=== PATIENT | male | born 1935 | race Caucasian/White ===

== ENCOUNTER 2018-01-04 09:58 | Inpatient (IN) ==
[2018-01-04] MEDS ORDERED: Dexamethasone 4 MG/ML VIAL ONE (10:29)
[2018-01-04] MEDS ORDERED: *HR* Rocuronium Bromide 50 MG/5 ML VIAL ONE ×2 (10:29→15:52)
[2018-01-04] MEDS ORDERED: Lidocaine -MPF 4% 5 ML AMPUL ONE (10:29)
[2018-01-04] MEDS ORDERED: *HR* Propofol 200 MG/20 ML VIAL IVP ONE (10:29)
[2018-01-04] MEDS ORDERED: Lidocaine -MPF 2% 2 ML VIAL ONE (10:29)
[2018-01-04] MEDS ORDERED: *HR* FentaNYL (PF) 100 MCG/2 ML VIAL ONE ×3 (10:29→17:53)
[2018-01-04] MEDS ORDERED: Ondansetron 4 MG/2 ML VIAL ONE ×2 (10:29→17:41)
[2018-01-04] MEDS ORDERED: Ringers Solution, Lactated 1,000 ML IVC SCH (10:30)
[2018-01-04] MEDS ORDERED: Albuterol 2.5 MG/3 ML NEBULIZER IH ONE (10:38)
[2018-01-04] MEDS ORDERED: CeFAZolin Syr 2,000MG/20 ML 2,000 MG/20 ML SYRINGE IVPB ONE (10:45)
[2018-01-04] MEDS ORDERED: Heparin 1,000 UNITS/500 mL 500 ML ONE (10:49)
[2018-01-04] MEDS ORDERED: *HR* Heparin 5,000 UNIT/ML VIAL ONE ×2 (10:50→13:52)
[2018-01-04] MEDS ORDERED: ceFAZolin 1,000 MG, Sodium Chloride IRRigation 1,000 ML IR ONE (11:30)
[2018-01-04] MEDS ORDERED: Bupivacaine/EPI 1:200k 0.5%PF 10 ML VIAL ONE (11:34)
--- NOTE | 2018-01-04 11:34 | History & Physical Report ---
Date of Encounter: 01/04/18 Time of Encounter: 11:25 24 Hour HP Update - Instructions Instructions: If the History and Physical is less than 30 days old and was completed prior to A.M. admission and or procedure and has NOT been updated on calendar day of procedure please complete this update prior to performing procedure. - Update Patient reports changes in Medical Condition: No Changes in examination, assessment, or condition: No Changes in Medication: No Preop tests/diagnostics Reviewed: Yes Surgery Remains Indicated: Yes Consent for Planned Operative Procedure(s) Verified: Yes - Pre-Operative Checklist Preoperative Checklist Indicated: Yes Prophylactic Antibiotic Ordered: Yes Home Medications Include Beta Misbah: Yes Beta Misbah Taken Today (Day of Surgery): Yes Beta Misbah Taken Yesterday (Day Prior to Surgery): Yes Is VTE Prophylaxis Indicated?: Yes
[2018-01-04] MEDS ORDERED: Heparin 1,000 UNITS/500 mL 1,500 ML ONE (11:35)
--- NOTE | 2018-01-04 11:39 | Anesthesia Evaluation PreOp ---
Date of Encounter: 01/04/18 Time of Encounter: 11:38 - Past History Planned Operation: Right LE vascular intervention Cardiac History: HTN, Hyperlipidemia, Cardiac Surgery (CABG), Other (Good excercise tolerance, Rafiq LE claudication) Pulmonary History: Former smoker, Smoker (Pipe) [employer] History: Denies Any Significant HX Other Medical History: GERD (Controlled) Anesthesia History: No Prior Anesthetic Complications, Past Anesthesia Alcohol Use: none Drug use: none Medications and Allergies Aspirin [Lo-Dose Aspirin EC] 81 mg PO DAILY 01/04/18 [History] Enalapril Maleate [Vasotec] 20 mg PO DAILY 01/04/18 [History] Famotidine [Pepcid] 20 mg PO BID 01/04/18 [History] Gabapentin [Neurontin] 200 mg PO HS 01/04/18 [History] Metoprolol [Lopressor] 25 mg PO BID 01/04/18 [History] Rosuvastatin Calcium [Rosuvastatin Calcium] 20 mg PO HS 01/04/18 [History] 3 Allergy/AdvReac Type Severity Reaction Status Date / Time No Known Allergies Allergy Verified 01/04/18 10:37 - Meds/Allergy Pre-op Review Medications Reviewed: Yes Allergies Reviewed: Yes Beta Blockers on Current Med List: Yes Anesthesia Exam O2 Sat Height 1.68 m Height 1.68 m Weight 60.781 kg Weight 60.781 kg O2 Sat by Pulse Oximetry 98 Vital Signs Temp Pulse Resp BP Pulse Ox 97.9 F 59 18 174/63 98 01/04/18 10:28 01/04/18 10:28 01/04/18 10:28 01/04/18 10:28 01/04/18 10:28 NPO (# of Hours): >8 - HEENT Mallampati: II Teeth: Edentulous - Cardiac Rhythm: Regular - Pulmonary Breath Sounds: bilateral Clear Anesthesia Assess/Plan ASA Score: 4 Modified [place] Scale for Level of Consciousness: Cooperative, oriented, and tranquil Anesthetic Plan: General Monitoring Plan: Standard Monitors Recovery Plan: PACU Anes Supervising Prov Stmt: Patient informed and consented. Risks, benefits, and alternatives discussed. Patient wishes to proceed.
[2018-01-04] MEDS ORDERED: Isovue-300 50 ML VIAL IVP ONE (12:25)
[2018-01-04] MEDS ORDERED: EPHEDrine 50 MG/ML VIAL ONE (13:25)
[2018-01-04] MEDS ORDERED: MORPHINE SUL Oral CONC 10 MG/0.5 ML ORAL.SYG SL PRN (14:25)
[2018-01-04] MEDS ORDERED: *HR* OxyCODONE Immed Rel 5 MG TABLET PO PRN ×2 (14:25→20:12)
[2018-01-04] MEDS ORDERED: *HR* Labetalol 20 MG/4 ML SYRINGE IVP PRN (14:26)
[2018-01-04] MEDS ORDERED: Ondansetron 4 MG/2 ML VIAL IVP PRN ×2 (14:26→20:12)
[2018-01-04] MEDS ORDERED: Neostigmine Methylsulfate 3 MG/3 ML SYRINGE ONE (17:41)
[2018-01-04] MEDS ORDERED: Esmolol 100 MG/10 ML VIAL IVP ONE (17:45)
[2018-01-04] MEDS ORDERED: Acetaminophen IV 1,000 MG/100 ML INFUS..BTL ONE (18:10)
--- NOTE | 2018-01-04 18:25 | Operative Note ---
Date of procedure: 01/04/18 Pre-op diagnosis: PAD/claudication Post-op diagnosis: same Procedure: right iliofemoral endarterectomy with bovine patch angioplasty abdominal aortogram with radiologic supervision and interpretation via retrograde approach in right groin right external iliac stent angioplasty-unilateral- with 6 x 40 mm self expanding stent with post stent balloon angioplasty with radiologic supervision and interpretation right leg angiogram with radiologic supervision and interpretation via antegrade approach via right groin right AK popliteal endarterectomy right femoral to AK popliteal bypass with 6 mm PTFE Distaflo Complications: none Anesthesia: GETA Surgeon: Harrison Fam Was there an behavioral modification assistant present: No Estimated blood loss (cc): 200 Specimen: 0 Condition: stable Disposition: PACU Procedure in Detail: History Adolph Wei is an 82-year-old white male who was seen in consultation earlier this year because of bilateral lower extremity symptoms. The patient has a remote history of peripheral vascular disease. He had undergone previous iliac stent angioplasties at [facility] many years ago. The patient states that he has had return of his symptoms and was referred to the vascular surgery clinic for further evaluation. The patient underwent noninvasive testing which showed an ankle-brachial index of approximately 0.5 bilaterally. He then underwent a CT angiogram which demonstrated significant iliac and superficial femoral as well as common femoral artery disease. This was bilateral but worse on the right lower extremity than on the left. Therefore today he comes to the operating room to attempt to alleviate the right lower extremity claudication and ischemia. He is aware that he will require a second operation for the left lower extremity at a later date. Procedure After informed consent was obtained the patient was taken to the operating room. General endotracheal anesthesia was established. The abdomen groin and right lower extremity were sterilely prepped and draped. A timeout protocol was observed. The initial incision was at the right groin area. Dissection was made through a vertical incision in the right groin to expose the entire length of the common femoral artery as well as the femoral bifurcation and distal aspect of the external iliac artery. This was an extensive dissection with multiple branches requiring control. After this was satisfactorily obtained and the vessel was inspected and found to be densely calcified with marked areas of rigidity. It should be noted that the superficial femoral artery and profunda femoris artery distal to the orifice ease appeared to be relatively soft. The external iliac artery was densely calcified as far as could be palpated retrograde from this right groin exposure. 5000 units of heparin were then administered. After an appropriate delay the vessels were controlled and a long arteriotomy was made over the right common femoral artery. The entire anterior aspect of the common femoral artery was opened. This was continued into the distal external iliac artery as well. The plaque was indeed a very dense calcific plaque. Parts of the was circumferential. An endarterectomy was then performed of the entire common femoral artery and distal right external iliac artery. In addition the orifice of the right profunda femoris artery and right superficial femoral artery were also endarterectomized. There was a large area of calcific plaque obstructing the orifice of the right profunda femoris artery. After this endarterectomy was accomplished a bovine pericardial patch angioplasty was performed. This was sewn into position using 6-0 Prolene suture. After appropriate backbleeding and flushing the clamps are removed and pulsatile flow was restored into the femoral system. With this accomplished the next order of business was to more fully evaluate the aortoiliac segment. Therefore an 18-gauge needle was used and punctured the patch angioplasty site in a retrograde orientation. This was followed by a wire which under fluoroscopic control was advanced into the iliac system. This was followed by a 5.5 cm Long 6 Icelandic sheath. The sheath was aspirated and flushed with heparinized saline. An iliac angiogram and an aortic angiogram was then performed via the right groin approach. The previously placed iliac stents were observed. These were found to be at the proximal common iliac arteries bilaterally. In addition there was a second stent on the right side that was in the distal common iliac and extending into the proximal right external iliac artery and covering over the orifice of the internal iliac. The right sided stents were patent. There was an area of stenosis however distal to the lower of the 2 right sided stents but proximal to the area of the endarterectomy. Therefore additional heparin was given and a stent angioplasty was performed of this stenotic area in the proximal to midportion of the right external iliac artery. A 6 x 40 self-expanding stent was selected. This was deployed under fluoroscopic control. This was then followed by a 6 x 40 balloon to perform a balloon angioplasty of the self-expanding stent. With this accomplished a retrograde angiogram was performed which showed wide patency of the right iliac system. Then an Omni Flush catheter was placed into the distal abdominal aorta and an aortogram was performed. In addition, particular attention was paid to the left iliac system. This showed that the proximal aspect of the left common iliac artery stent was widely patent but the distal aspect of the stent showed significant disease. There is also significant disease throughout the left external iliac artery. It was judged that this area could be addressed in the future by a left groin exploration and endarterectomy with retrograde treatment of the left iliac system stenoses. The 6 Icelandic shunt was then removed from its retrograde orientation and the puncture site closed with a 6-0 Prolene suture. An 18-gauge needle was used and then a separate rupture site was utilized and the sheath was then now oriented in an antegrade fashion. After this was done a wire was inserted through the sheath and an angiogram was performed of the right lower extremity. 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 There is reconstitution of an [id number] popliteal artery. The collateralization appears to be dense and chronic. Calcific disease of the superficial femoral artery and proximal popliteal were observed. A Glidewire was then inserted and a Hayes catheter and an attempt was made to transgress the chronic occlusion. This was unsuccessful and the true lumen in the popliteal could not be recanalized. Therefore an endovascular attempt to revascularize the superficial femoral artery occlusion was abandoned and direct revascularization was necessary. With this decision made a second incision was then made at the [id number] popliteal location. Dissection was carried out to reveal the [id number] popliteal artery. This was normal in size but demonstrated calcific plaque disease as expected by the angiogram. Therefore after appropriate control was obtained a longitudinal arteriotomy was made on the popliteal artery. A very thick and dense plaque was present and protruded immediately through the area of the arteriotomy. A formal endarterectomy was then performed of the above-the- knee popliteal artery area after this was accomplished the bed of the vessel was inspected for any residual debris. This vessel was now prepared to receive the distal anastomosis. A 6 mm PTFE Distaflo graft was selected. It was passed in a subsartorial plane with the fluted end of the graft placed on the endarterectomized [id number] right popliteal artery. An end of graft to side of artery anastomosis was then created using 6-0 Prolene suture. The graft was then clamped. An opening was then made on the right femoral artery bovine pericardial patch. An endograft to side of artery anastomosis was then created at the common femoral artery to provide the proximal inflow into the graft. After appropriate backbleeding and flushing the graft was opened. Excellent pulsatile flow was achieved through the graft into the popliteal system. Doppler signals were identified over the dorsalis pedis and posterior tibial arteries at the ankle. With these multiple steps now performed a right lower extremity was successfully revascularized. The incisions were then irrigated and hemostasis achieved. The heparin was not reversed. The wounds were then closed in layers using absorbable suture. Dry sterile dressings were applied. The patient was then extubated in the operating room. He was taken to the recovery room in stable condition. There were no intraoperative complications.
[2018-01-04] MEDS ORDERED: Gabapentin 300 MG CAPSULE PO ONE (19:28)
[2018-01-04] MEDS ORDERED: *HR* HYDROcodone/Acet 5/325 mg TABLET PO PRN (20:12)
[2018-01-04] MEDS ORDERED: Naloxone 0.4 MG/ML INJ IVP PRN (20:12)
[2018-01-04] MEDS ORDERED: Acetaminophen 325 MG TABLET PO PRN (20:12)
[2018-01-04] MEDS ORDERED: Gabapentin 100 MG CAPSULE PO SCH (21:00)
[2018-01-04] MEDS: Famotidine 20 MG TABLET PO SCH (21:20)
--- NOTE | 2018-01-04 23:03 | Anesthesia Evaluation Post Op ---
Date of Encounter: 01/04/18 Time of Encounter: 23:02 - Vital Signs Vital Signs: Vital Signs/O2 Sat, Most Current Temp Pulse Resp BP Pulse Ox 97.5 F L 93 16 101/48 93 01/04/18 21:47 01/04/18 21:47 01/04/18 21:47 01/04/18 21:47 01/04/18 21:47 - Lungs Lungs: Clear Ascult./Percussion - Airway Airway: Non-obstructed - Cardiovascular Regular Rate - Mental Status Mental Status: Alert & Oriented, Answers Appropriately - Pain Pain Scale: 0 Pain Scale used: Numeric (1 - 10) - Nausea Vomiting Nausea Vomiting: Not Present - Hydration Hydration: NPO - Discharge PostOp Status: Transfer Patient to floor
[2018-01-05] MEDS ORDERED: CeFAZolin Pre 2,000 MG/100 ML 2,000 MG/100 ML BAG IVPB SCH
[2018-01-05] MEDS: ceFAZolin 2,000 MG in 0.9 % Sodium Chloride 100 ML IVPB SCH ×2 (00:27→08:48)
[2018-01-05 03:23] LABS: Basophils % 0.1 %; Hematocrit 30.8 % (37.5-50.1); Immature Granulocytes % 0.7 % (0-4); Lymphocytes # 1.8 K/mcL (0.6-4.6); Lymphocytes % 13.7 %; Mean Corpuscular HGB Conc 32.1 g/dL (31.6-35.5); Mean Corpuscular Hemoglobin 28.7 pg (28.0-33.3); Mean Corpuscular Volume 89.3 fL (83.0-100.0); Mean Platelet Volume 9.8 fL (9.4-12.4); Monocytes # 0.9 K/mcL (0.0-1.3); Monocytes % 6.7 %; Neutrophils # 10.5 K/mcL (1.6-8.9); Platelet Count 190 K/mcL (140-400); Red Blood Count 3.45 M/mcL (4.19-5.50); Red Cell Distribution Width 14.3 % (11.5-14.5); Segmented Neutrophils % 78.8 %
[2018-01-05 03:26] LABS: Hemoglobin 9.9 g/dL (12.9-16.9)
[2018-01-05 03:43] LABS: BUN/Creatinine Ratio 18 (6-26); Blood Urea Nitrogen 24 mg/dL (8-23); Carbon Dioxide 25 mEq/L (23-29); Chloride 109 mEq/L (98-107); Glucose 163 mg/dL (70-105); Osmolality,Calculated 296 (280-300); Potassium 3.7 mEq/L (3.5-5.1); Sodium 139 mEq/L (136-145); eGFR For African Americans > 60 (> 60); eGFR For Non-African Americans 52 (> 60)
[2018-01-05] MEDS: Famotidine 20 MG TABLET PO SCH (08:47)
[2018-01-05] MEDS ORDERED: Lisinopril 20 MG TABLET PO SCH (09:00)
[2018-01-05] MEDS ORDERED: Aspirin Enteric Coated 81 MG Tablet PO SCH (09:00)
[2018-01-05] MEDS ORDERED: ceFAZolin 2,000 MG in 0.9 % Sodium Chloride 100 ML IVPB SCH (16:00)
[2018-01-05 16:18] VITALS: BP 142/55
--- NOTE | 2018-01-05 18:04 | Discharge Summary ---
Orders not resulted at time of discharge: Pending orders 01/04/18 15:05 XR femur RT [XR] Routine Date of Encounter: 01/05/18 Time of Encounter: 17:25 - Discharge Diagnosis (1) PAD (peripheral artery disease) Priority: Primary Status: Acute Comments: The patient has bilateral lower extremity claudication and PAD with an ankle brachial index of approximately 0.5. Patient was taken to the operating room for right lower extremity reconstruction. (2) Hypertension Priority: Secondary Status: Chronic Comments: Patient is under medical management. Qualifiers: Hypertension type: essential hypertension Qualified Code(s): I10 - Essential (primary) hypertension (3) Hyperlipidemia Priority: Secondary Status: Chronic Comments: Patient is under medical management. Qualifiers: Hyperlipidemia type: unspecified Qualified Code(s): E78.5 - Hyperlipidemia , unspecified - Hospital Course Hospital course: Mr. Wei is a 82 year old male With severe bilateral lower extremity occlusive disease. He was taken the operating room and extensive reconstruction of right lower extremity. Patient had a excellent result. The patient was felt fit for discharge on postoperative day #1. Instructions were reviewed with the patient's son. - Time Spent with Patient Total time spent providing and/or coordinating discharge services: - Discharge Medications Prescriptions: HYDROcodone/Acet 5/325 mg [[place] 5-325 mg] 1 tab PO Q6HR PRN 7 Days #7 tablet PRN Reason: Moderate Pain Home Medications: Aspirin [Lo-Dose Aspirin EC] 81 mg PO DAILY 01/04/18 [History] Enalapril Maleate [Vasotec] 20 mg PO DAILY 01/04/18 [History] Famotidine [Pepcid] 20 mg PO BID 01/04/18 [History] Gabapentin [Neurontin] 200 mg PO HS 01/04/18 [History] Metoprolol [Lopressor] 25 mg PO BID 01/04/18 [History] Rosuvastatin Calcium 20 mg PO HS 01/04/18 [History] HYDROcodone/Acet 5/325 mg [[place] 5-325 mg] 1 tab PO Q6HR PRN 7 Days #7 tablet [Rx] Allergies/Adverse Reactions: 3 Allergy/AdvReac Type Severity Reaction Status Date / Time No Known Allergies Allergy Verified 01/04/18 10:37 Date of admission: 01/04/18 11:34 Primary care physician: May Frank CNP Consults: None Procedure(s) Performed: Right external iliac artery stent angioplasty, right iliofemoral endarterectomy with patch angioplasty, right popliteal artery endarterectomy, and right femoral to above-knee popliteal artery bypass graft with 6 mm PTFE Distaflo. Discharging clinician: Harrison Fam Anticipated date of discharge: 01/05/18 Exam Vital Signs, Last 4 Hours Temp Pulse Resp BP Pulse Ox 01/05/18 15:50 98.4 F 76 16 142/55 96 General: Present: Conversant, No Apparent Distress Cardiac: Present: Reg Rate and Rhythm Lungs: Present: Normal Breath Sounds Neuro: Present: Alert and responsive, No focal deficits noted Vascular: Present: Normal capillary refill, Color/Temperature, Surgical incisions (Right foot is warm and pink. Right groin and right thigh incision are clean and dry without hematomas.). Absent: Edema Skin: Present: No rashes noted on visualized skin - Patient Status Disposition: Home, Self-Care Functional capacity at discharge: independent ambulation Overall status at discharge: patient is progressing back to baseline - Discharge Instructions Follow Up With: May Frank CNP [Primary Care Provider] - 01/12/18 1:00 pm Harrison Fam MD [Partnered Physician] - 01/26/18 11:45 am Additional Instructions: Keep right lower extremity incisions clean and dry for 5 days. The patient may ambulate as much as possible. Elevate right lower extremity while seated. Use incentive spirometer home 10 times an hour while awake. - Diet and Activity Activity: increase activity as tolerated Diet: advance to your usual diet - VTE Documentation of Mechanical Device: Intermittent pneumatic compression device
== END 2018-01-05 19:05 | disposition home or self-care (01) | DRG 254 ==
LOC: SAMDAY 09:58 → 2NNU 11:34
PROVIDERS: ADMIT Surgery Vascular Surgery; ATTEND Surgery Vascular Surgery
PROC: VASFFBG (ICD-10-PCS; 2018-01-04 11:30)

== ENCOUNTER 2018-03-17 17:53 | Inpatient (IN) ==
[2018-03-17] MEDS ORDERED: 0.9 % Sodium Chloride 1,000 ML IVC SCH (18:30)
[2018-03-17] MEDS ORDERED: *HR* FentaNYL (PF) 100 MCG/2 ML VIAL IVP ONE (18:30)
[2018-03-17] MEDS ORDERED: Heparin 1,000 UNITS/500 mL 500 ML ONE ×3 (18:47→22:57)
[2018-03-17] MEDS ORDERED: *HR* Propofol 200 MG/20 ML VIAL IVP ONE (18:49)
[2018-03-17] MEDS ORDERED: *HR* Midazolam HCl 2 MG/2 ML VIAL ONE (18:49)
[2018-03-17] MEDS ORDERED: *HR* Rocuronium Bromide 50 MG/5 ML VIAL ONE (18:49)
[2018-03-17] MEDS ORDERED: Ondansetron 4 MG/2 ML VIAL ONE ×2 (18:49→23:26)
[2018-03-17] MEDS ORDERED: *HR* Succinylcholine 200 MG/10 ML VIAL IVP ONE (18:49)
[2018-03-17] MEDS ORDERED: Lidocaine -MPF 2% 2 ML VIAL ONE (18:49)
[2018-03-17] MEDS ORDERED: *HR* FentaNYL (PF) 100 MCG/2 ML VIAL ONE (18:50)
[2018-03-17] MEDS ORDERED: Lidocaine -MPF 4% 5 ML AMPUL ONE (18:55)
--- NOTE | 2018-03-17 19:08 | Vascular/Endovascular H&P ---
Date of Encounter: 03/17/18 Time of Encounter: 17:30 Assessment and Plan (1) S/P CABG x 2 Current Visit: Yes Status: Chronic Performed at [facility] in the distant past. (2) PAD (peripheral artery disease) Current Visit: Yes Status: Acute Patient has acute occlusion of right femoral-popliteal bypass graft. Patient now has limb threatening ischemia of right lower extremity. Left lower extremity status remains stable though not normal. Previous workup in November revealed significant and diffuse vascular disease. Patient has disease of the iliac and femoral and tibial systems bilaterally. Plan emergency right lower extremity femoral-popliteal bypass graft thrombectomy this evening for limb salvage. (3) Hypertension Current Visit: No Status: Chronic Patient has history of chronic hypertension Qualifiers: Hypertension type: essential hypertension Qualified Code(s): I10 - Essential (primary) hypertension (4) Hyperlipidemia Current Visit: No Status: Chronic Qualifiers: Hyperlipidemia type: unspecified Qualified Code(s): E78.5 - Hyperlipidemia , unspecified History of Present Illness Chief complaint: Right leg pain HPI: Mr. Wei is a 82 year old male Adolph Wei is an 82-year-old white male with known severe vascular disease. The patient states that this past weekend he developed an acute onset of right lower extremity pain. His son discovered this on Wednesday. The patient states that he is only able to walk about 20 feet with his cane. The son is noted some bleb formation of lower extremities with drainage of some clear fluid. Patient states that the discomfort is present 24 hours a day. The patient had noninvasive testing performed today. This demonstrates an ankle-brachial index of only 0.18 at the right ankle and an ankle-brachial index of 0.49 on the left. Duplex imaging also revealed thrombosis of the right femoral-popliteal bypass graft. The patient's past medical history is significant for recent significant revascularization of the right lower extremity on January 04. This included a right iliofemoral endarterectomy, external iliac stent, right above-knee popliteal endarterectomy, and right femoral popliteal bypass graft with PTFE. The patient was last seen in the clinic on January 26. At that time he was doing well with excellent perfusion to the lower extremity. In the past the patient had radius bilateral lower extremity and her mentions at [facility]. These apparently were in the pelvic region as the patient has known old iliac artery stents. He also has a history of open heart bypass grafting performed at [facility]. Other past medical history includes hypertension, hyperlipidemia, skin cancer, decreased hearing, and restless leg syndrome. Past Med Surg Social Fam HX - Past Medical History Additional medical history: htn. cad. pad. rls. cataracts. vertigo Psychiatric history: no psych history - Past Surgical History Surgical History: angioplasty/stent (Bilateral iliac stent angioplasty at [facility]), cataract (Left cataract), coronary bypass (CABG), vascular surgery (Right femoral popliteal bypass graft with iliofemoral and popliteal endarterectomies December 2017) Additional surgical history: heart cath- stents - Social History Smoking Status: Current every day smoker Smokeless Tobacco Status: No Alcohol use: none Drug use: none Medications and Allergies Aspirin [Lo-Dose Aspirin EC] 81 mg PO DAILY 01/04/18 [History] Enalapril Maleate [Vasotec] 20 mg PO DAILY 01/04/18 [History] Famotidine [Pepcid] 20 mg PO BID 01/04/18 [History] Gabapentin [Neurontin] 200 mg PO HS 01/04/18 [History] Metoprolol [Lopressor] 25 mg PO BID 01/04/18 [History] Rosuvastatin Calcium 20 mg PO HS 01/04/18 [History] 3 Allergy/AdvReac Type Severity Reaction Status Date / Time No Known Allergies Allergy Verified 03/17/18 18:48 All Systems Review: The remainder of the systems were reviewed and are negative Exam Vital Signs, Last 4 Hours Temp Pulse Resp BP Pulse Ox 03/17/18 17:56 97.5 F L 68 16 200/67 98 General: Present: Conversant HEENT: Present: Atraumatic, Normocephaly, Trachea midline Neck: Absent: JVD, Midline deformity Cardiac: Present: Normal S1 and S2, No Murmur, Irregular Rhythm Lungs: Present: Normal Breath Sounds, No Wheeze, Rales, Rhonchi Neuro: Present: Alert and responsive, No focal deficits noted, Cranial nerves grossly intact Abdomen: Present: Soft, Non-tender. Absent: Masses Vascular: Present: Capillary refill delayed (Decreased capillary refill bilaterally), Pulse, absent (Patient has no palpable right popliteal or ankle pulses. There are no palpable left popliteal or ankle pulses.), Surgical incisions (Right lower extremity surgical incisions are well-healed), Other ( Patient has strongly palpable femoral pulse bilaterally). Absent: Edema, Amputation(s) Skin: Present: No rashes noted on visualized skin. Absent: Wound/ulcer(s)
--- NOTE | 2018-03-17 19:32 | Anesthesia Evaluation PreOp ---
Date of Encounter: 03/17/18 Time of Encounter: 20:31 - Past History Planned Operation: Right LE graft thrombectomy Cardiac History: HTN, Hyperlipidemia, Cardiac Surgery (CABG 2002, Good excercise tolerance, Negative stress test 01/05), Other (Rafiq LE PAD, Post right fem-pop BPG, Now with RLE ischemia.) Pulmonary History: Former smoker, Smoker (Pipe) [employer] History: Denies Any Significant HX Other Medical History: Renal, GERD (Controlled) Anesthesia History: No Prior Anesthetic Complications, Past Anesthesia Alcohol Use: none Drug use: none Medications and Allergies Aspirin [Lo-Dose Aspirin EC] 81 mg PO DAILY 01/04/18 [History] Enalapril Maleate [Vasotec] 20 mg PO DAILY 01/04/18 [History] Famotidine [Pepcid] 20 mg PO BID 01/04/18 [History] Gabapentin [Neurontin] 200 mg PO HS 01/04/18 [History] Metoprolol [Lopressor] 25 mg PO BID 01/04/18 [History] Rosuvastatin Calcium 20 mg PO HS 01/04/18 [History] 3 Allergy/AdvReac Type Severity Reaction Status Date / Time No Known Allergies Allergy Verified 03/17/18 18:48 - Meds/Allergy Pre-op Review Medications Reviewed: Yes Allergies Reviewed: Yes Beta Blockers on Current Med List: Yes Anesthesia Results - Labs 03/17/18 19:10 03/17/18 19:10 Laboratory Tests 03/17/18 03/17/18 19:10 19:10 PT 12.8 H INR 1.1 APTT 33.3 Est GFR (Non-Af Amer) 50 L Calcium 8.9 - Imaging EKG: report reviewed (SR, 1st AVB,) Additional studies: Stress test 12/2017: Negative for ischemia Gated EF 70% Anesthesia Exam 2 Height 1.7 m Weight 63.503 kg BMI 22 Vital Signs Temp Pulse Resp BP Pulse Ox 97.5 F L 68 16 200/67 98 03/17/18 17:56 03/17/18 17:56 03/17/18 17:56 03/17/18 17:56 03/17/18 17:56 NPO (# of Hours): 1300 Liquids, 0900 Solids - HEENT Mallampati: II Teeth: Edentulous Oral Opening: Greater than 3 - [employer] LOC: Oriented - Cardiac Rhythm: Regular - Pulmonary Breath Sounds: bilateral Clear Anesthesia Assess/Plan ASA Score: 4, E Modified [place] Scale for Level of Consciousness: Cooperative, oriented, and tranquil Anesthetic Plan: General Monitoring Plan: Standard Monitors Recovery Plan: PACU
[2018-03-17 19:35] LABS: Basophils % 0.3 %; Eosinophils # 0.1 K/mcL (0.0-0.6); Eosinophils % 1.6 %; Hematocrit 36.9 % (37.5-50.1); Hemoglobin 11.8 g/dL (12.9-16.9); Immature Granulocytes % 0.1 % (0-4); Lymphocytes # 3.7 K/mcL (0.6-4.6); Lymphocytes % 42.2 %; Mean Corpuscular Hemoglobin 28.8 pg (28.0-33.3); Mean Platelet Volume 9.5 fL (9.4-12.4); Monocytes # 0.7 K/mcL (0.0-1.3); Monocytes % 7.9 %; Neutrophils # 4.2 K/mcL (1.6-8.9); Platelet Count 210 K/mcL (140-400); Segmented Neutrophils % 47.9 %
[2018-03-17 19:43] LABS: INR 1.1; Prothrombin Time 12.8 Seconds (9.4-12.1)
[2018-03-17 19:47] LABS: Activated Partial Thrombo Time 33.3 Seconds (26.0-36.0)
--- NOTE | 2018-03-17 19:48 | Emergency Department Note ---
Disposition Clinical Impression: Ischemia of right lower extremity Disposition: Admitted As Inpatient Condition: Good Time of Disposition: 20:42 General Adult HPI - General Chief complaint: ED Extremity Problem,Nontraumatic Stated complaint: "R leg graft plugged, sent by " Time Seen by Provider: 03/17/18 18:02 Nursing Notes Reviewed: Yes Vital Signs Reviewed: Yes - History of Present Illness HPI Narrative: Placenta by Dr. Fam to have labs drawn for OR visit today. Pain Scale: 6 - Related Data Home Medications Medication Instructions Recorded Confirmed Aspirin [Lo-Dose Aspirin EC] 81 mg PO DAILY 01/04/18 03/17/18 Enalapril Maleate [Vasotec] 20 mg PO DAILY 01/04/18 03/17/18 Famotidine [Pepcid] 20 mg PO BID 01/04/18 03/17/18 Gabapentin [Neurontin] 200 mg PO HS 01/04/18 03/17/18 Metoprolol [Lopressor] 25 mg PO BID 01/04/18 03/17/18 Rosuvastatin Calcium 20 mg PO HS 01/04/18 03/17/18 Allergies Allergy/AdvReac Type Severity Reaction Status Date / Time No Known Allergies Allergy Verified 03/17/18 18:48 All systems ED: reviewed and negative except as stated. Constitutional: Denies: fever, chills ENT ED: Denies: congestion Cardiovascular: Denies: chest pain, palpitations, syncope Respiratory: Denies: cough, dyspnea Gastrointestinal: Denies: abdominal pain, nausea, vomiting, diarrhea Musculoskeletal: Reports: other (Pain to his right lower extremity. Cold to his right lower extremity. Decreased capillary refill to his right lower extremity.) Past Medical History - Past Medical History Attestation: Yes The following information was validated with the patient. Source: patient Medical history: Reports: coronary artery disease, hypertension, peripheral artery disease Surgical history: Reports: angioplasty/stent (Bilateral iliac stent angioplasty at [facility]), cataract (Left cataract), coronary bypass (CABG), vascular surgery (Right femoral popliteal bypass graft with iliofemoral and popliteal endarterectomies December 2017) Psychiatric history: Reports: no psych history - Social History Smoking Status: Current every day smoker Smokeless Tobacco Status: No Alcohol use: Reports: none Drug use: Reports: none Physical Exam - General Limitations: no limitations General appearance: alert, in no apparent distress - Head Head exam: atraumatic, normocephalic, normal inspection - Eye Eye exam: Present: normal appearance, PERRL, EOMI - ENT ENT exam: normal exam, normal oropharynx, mucous membranes moist - Neck Neck exam: Present: normal inspection, full ROM, trachea midline - Chest Chest inspection: Present: normal inspection, symmetric chest wall rise - Respiratory Respiratory exam: Present: normal lung sounds bilaterally. Absent: respiratory distress, accessory muscle use - Cardiovascular Cardiovascular exam: Present: regular rate, normal rhythm, normal heart sounds - Abdominal Exam Abdominal exam: Present: soft, Non-Tender. Absent: tenderness, distention, guarding, rebound, rigidity - Extremities Exam Extremities exam: Present: normal inspection (Of left lower extremity), other ( Decreased capillary refill to the right lower extremity. Reduction he is colder than the left lower cavity. There is also erythema to the right lower extreme any. No signs of infection.) - Neurological Exam Neurological exam: Present: alert, oriented X3 - Psychiatric Psychiatric exam: Present: normal affect, normal mood - Skin Skin exam: Present: warm, dry, intact, normal color Course Course Narrative: Male patient being sent by Dr. Fam for lab work for preop. He was being seen here for ABIs. He was then sent here so he could be taken into the OR. Patient describes one-week history of right leg numbness. States his toe is been red since 1 week ago. Denies any trauma. Has had a history of a them femoral popliteal bypass by Dr. Fam. He denies any shortness of breath or chest pain. He denies being on any type of blood thinner. Dr. Fam is requesting certain labs. We have added them. Dr. Fam will be taken the patient to the OR from here. Vital Signs Temperature 97.5 F L 03/17/18 17:56 Pulse Rate 68 03/17/18 17:56 Respiratory Rate 16 03/17/18 17:56 Blood Pressure 200/67 03/17/18 17:56 O2 Sat by Pulse Oximetry 98 03/17/18 17:56 Temperature 97.5 F L 03/17/18 19:30 Pulse Rate 73 03/17/18 20:09 Respiratory Rate 18 03/17/18 20:09 Blood Pressure 160/69 03/17/18 20:09 O2 Sat by Pulse Oximetry 99 03/17/18 20:09 Oxygen Delivery Oxygen Delivery Room Air Medical Decision Making - Medical Records Medical records reviewed: Yes I reviewed the patient's medical records. - Lab Data Lab results reviewed: Yes I reviewed the patient's lab results. Result diagrams: 03/17/18 19:10 03/17/18 19:10 Lab Results 03/17/18 03/17/18 03/17/18 Range/Units 19:10 19:10 19:10 WBC 8.9 (4.3-11.1) K/mcL RBC 4.10 L (4.19-5.50) M/mcL Hgb 11.8 L (12.9-16.9) g/dL Hct 36.9 L (37.5-50.1) % MCV 90.0 (83.0-100.0) fL MCH 28.8 (28.0-33.3) pg MCHC 32.0 (31.6-35.5) g/dL RDW 14.0 (11.5-14.5) % Plt Count 210 (140-400) K/mcL MPV 9.5 (9.4-12.4) fL Immature Gran % 0.1 (0-4) % Seg Neutrophils % 47.9 % Lymphocytes % 42.2 % Monocytes % 7.9 % Eosinophils % 1.6 % Basophils % 0.3 % Neutrophils # 4.2 (1.6-8.9) K/mcL Lymphocytes # 3.7 (0.6-4.6) K/mcL Monocytes # 0.7 (0.0-1.3) K/mcL Eosinophils # 0.1 (0.0-0.6) K/mcL Basophils # 0.0 (0.0-0.2) K/mcL PT 12.8 H (9.4-12.1) Seconds INR 1.1 APTT 33.3 (26.0-36.0) Seconds Sodium 140 (136-145) mEq/L Potassium 3.5 (3.5-5.1) mEq/L Chloride 107 (98-107) mEq/L Carbon Dioxide 26 (23-29) mEq/L BUN 16 (8-23) mg/dL Creatinine 1.35 H (0.70-1.30) mg/dL Est GFR ( Amer) > 60 (> 60) Est GFR (Non-Af Amer) 50 L (> 60) BUN/Creatinine Ratio 12 (6-26) Glucose 94 (70-105) mg/dL Calculated Osmolality 291 (280-300) Calcium 8.9 (8.6-10.3) mg/dL Blood Type Antibody Screen 03/17/18 Range/Units 19:10 WBC (4.3-11.1) K/mcL RBC (4.19-5.50) M/mcL Hgb (12.9-16.9) g/dL Hct (37.5-50.1) % MCV (83.0-100.0) fL MCH (28.0-33.3) pg MCHC (31.6-35.5) g/dL RDW (11.5-14.5) % Plt Count (140-400) K/mcL MPV (9.4-12.4) fL Immature Gran % (0-4) % Seg Neutrophils % % Lymphocytes % % Monocytes % % Eosinophils % % Basophils % % Neutrophils # (1.6-8.9) K/mcL Lymphocytes # (0.6-4.6) K/mcL Monocytes # (0.0-1.3) K/mcL Eosinophils # (0.0-0.6) K/mcL Basophils # (0.0-0.2) K/mcL PT (9.4-12.1) Seconds INR APTT (26.0-36.0) Seconds Sodium (136-145) mEq/L Potassium (3.5-5.1) mEq/L Chloride (98-107) mEq/L Carbon Dioxide (23-29) mEq/L BUN (8-23) mg/dL Creatinine (0.70-1.30) mg/dL Est GFR ( Amer) (> 60) Est GFR (Non-Af Amer) (> 60) BUN/Creatinine Ratio (6-26) Glucose (70-105) mg/dL Calculated Osmolality (280-300) Calcium (8.6-10.3) mg/dL Blood Type A NEGATIVE Antibody Screen NEGATIVE Attestation Statement - Attestation Attestation: I examined this patient and my medical decision-making was reviewed with the Resident Physician. I agree with the documented findings, disposition and treatment plan as described except to the extent set forth below.
[2018-03-17 19:55] LABS: BUN/Creatinine Ratio 12 (6-26); Blood Urea Nitrogen 16 mg/dL (8-23); Calcium 8.9 mg/dL (8.6-10.3); Carbon Dioxide 26 mEq/L (23-29); Chloride 107 mEq/L (98-107); Glucose 94 mg/dL (70-105); Osmolality,Calculated 291 (280-300); Potassium 3.5 mEq/L (3.5-5.1); Sodium 140 mEq/L (136-145); eGFR For African Americans > 60 (> 60); eGFR For Non-African Americans 50 (> 60)
--- NOTE | 2018-03-17 20:34 | Emergency Department Note ---
Disposition Clinical Impression: Ischemia of right lower extremity Disposition: Admitted As Inpatient Condition: Fair Referrals: May Frank CNP [Primary Care Provider] - Time of Disposition: 20:04 General Adult HPI - General Chief complaint: ED Extremity Problem,Nontraumatic Stated complaint: "R leg graft plugged, sent by " Time Seen by Provider: 03/17/18 18:02 Nursing Notes Reviewed: Yes Vital Signs Reviewed: Yes - History of Present Illness Pain Scale: 0 - Related Data Home Medications Medication Instructions Recorded Confirmed Aspirin [Lo-Dose Aspirin EC] 81 mg PO DAILY 01/04/18 03/17/18 Enalapril Maleate [Vasotec] 20 mg PO DAILY 01/04/18 03/17/18 Famotidine [Pepcid] 20 mg PO BID 01/04/18 03/17/18 Gabapentin [Neurontin] 200 mg PO HS 01/04/18 03/17/18 Metoprolol [Lopressor] 25 mg PO BID 01/04/18 03/17/18 Rosuvastatin Calcium 20 mg PO HS 01/04/18 03/17/18 Allergies Allergy/AdvReac Type Severity Reaction Status Date / Time No Known Allergies Allergy Verified 03/17/18 18:48 Past Medical History - Past Medical History Medical history: Reports: coronary artery disease, hypertension, peripheral artery disease Surgical history: Reports: angioplasty/stent (Bilateral iliac stent angioplasty at [facility]), cataract (Left cataract), coronary bypass (CABG), vascular surgery (Right femoral popliteal bypass graft with iliofemoral and popliteal endarterectomies December 2017) Psychiatric history: Reports: no psych history - Social History Smoking Status: Current every day smoker Smokeless Tobacco Status: No Alcohol use: Reports: none Drug use: Reports: none Physical Exam - General General appearance: alert Course Vital Signs Temperature 97.5 F L 03/17/18 17:56 Pulse Rate 68 03/17/18 17:56 Respiratory Rate 16 03/17/18 17:56 Blood Pressure 200/67 03/17/18 17:56 O2 Sat by Pulse Oximetry 98 03/17/18 17:56 Temperature 97.5 F L 03/17/18 19:30 Pulse Rate 73 03/17/18 20:09 Respiratory Rate 18 03/17/18 20:09 Blood Pressure 160/69 06/28/18 20:09 O2 Sat by Pulse Oximetry 99 03/17/18 20:09 Oxygen Delivery Oxygen Delivery Room Air Medical Decision Making - Lab Data Result diagrams: 03/17/18 19:10 03/17/18 19:10 Lab Results 03/17/18 03/17/18 03/17/18 Range/Units 19:10 19:10 19:10 WBC 8.9 (4.3-11.1) K/mcL RBC 4.10 L (4.19-5.50) M/mcL Hgb 11.8 L (12.9-16.9) g/dL Hct 36.9 L (37.5-50.1) % MCV 90.0 (83.0-100.0) fL MCH 28.8 (28.0-33.3) pg MCHC 32.0 (31.6-35.5) g/dL RDW 14.0 (11.5-14.5) % Plt Count 210 (140-400) K/mcL MPV 9.5 (9.4-12.4) fL Immature Gran % 0.1 (0-4) % Seg Neutrophils % 47.9 % Lymphocytes % 42.2 % Monocytes % 7.9 % Eosinophils % 1.6 % Basophils % 0.3 % Neutrophils # 4.2 (1.6-8.9) K/mcL Lymphocytes # 3.7 (0.6-4.6) K/mcL Monocytes # 0.7 (0.0-1.3) K/mcL Eosinophils # 0.1 (0.0-0.6) K/mcL Basophils # 0.0 (0.0-0.2) K/mcL PT 12.8 H (9.4-12.1) Seconds INR 1.1 APTT 33.3 (26.0-36.0) Seconds Sodium 140 (136-145) mEq/L Potassium 3.5 (3.5-5.1) mEq/L Chloride 107 (98-107) mEq/L Carbon Dioxide 26 (23-29) mEq/L BUN 16 (8-23) mg/dL Creatinine 1.35 H (0.70-1.30) mg/dL Est GFR ( Amer) > 60 (> 60) Est GFR (Non-Af Amer) 50 L (> 60) BUN/Creatinine Ratio 12 (6-26) Glucose 94 (70-105) mg/dL Calculated Osmolality 291 (280-300) Calcium 8.9 (8.6-10.3) mg/dL Blood Type Antibody Screen 03/17/18 Range/Units 19:10 WBC (4.3-11.1) K/mcL RBC (4.19-5.50) M/mcL Hgb (12.9-16.9) g/dL Hct (37.5-50.1) % MCV (83.0-100.0) fL MCH (28.0-33.3) pg MCHC (31.6-35.5) g/dL RDW (11.5-14.5) % Plt Count (140-400) K/mcL MPV (9.4-12.4) fL Immature Gran % (0-4) % Seg Neutrophils % % Lymphocytes % % Monocytes % % Eosinophils % % Basophils % % Neutrophils # (1.6-8.9) K/mcL Lymphocytes # (0.6-4.6) K/mcL Monocytes # (0.0-1.3) K/mcL Eosinophils # (0.0-0.6) K/mcL Basophils # (0.0-0.2) K/mcL PT (9.4-12.1) Seconds INR APTT (26.0-36.0) Seconds Sodium (136-145) mEq/L Potassium (3.5-5.1) mEq/L Chloride (98-107) mEq/L Carbon Dioxide (23-29) mEq/L BUN (8-23) mg/dL Creatinine (0.70-1.30) mg/dL Est GFR ( Amer) (> 60) Est GFR (Non-Af Amer) (> 60) BUN/Creatinine Ratio (6-26) Glucose (70-105) mg/dL Calculated Osmolality (280-300) Calcium (8.6-10.3) mg/dL Blood Type A NEGATIVE Antibody Screen NEGATIVE Attestation Statement - Attestation Attestation: I examined this patient and my medical decision-making was reviewed with the Resident Physician. I agree with the documented findings, disposition and treatment plan as described except to the extent set forth below. 82-year-old male presents ED because right leg pain. He underwent a right- sided femoral popliteal bypass graft in November of this year per Dr. Fam. He is now having a week worth of increasing pain in the right leg is worsened with ambulation. He was sent to outpatient testing today per Dr. Fam and had ABIs done. A call Dr. Fam due to the results and he saw the patient in the testing area and sent him to the ED for preoperative preparations. Patient denies any fevers. No dyspnea. Pain is localized to the right leg. Pleasant elderly male in no apparent physiologic distress. Oropharynx is clear. Chest is clear bilaterally but symmetrically diminished. Cardiac exam regular. Abdomen soft and nontender. Extremities he has decreased sensation throughout the right leg. Dorsal pedal pulses not palpable. Capillary refill is about 5-6 seconds in the toes. Right leg is cool compared to the left. Patient was seen in the ED by Dr. Fam and will be taken directly to the operating room for thrombectomy of the right femoral popliteal graft
[2018-03-17] MEDS ORDERED: *HR* Morphine 10 MG/ML VIAL ONE (21:58)
[2018-03-17] MEDS ORDERED: *HR* Heparin 5,000 UNIT/ML VIAL ONE (22:17)
[2018-03-17] MEDS ORDERED: Dexamethasone 4 MG/ML VIAL ONE (23:27)
--- NOTE | 2018-03-17 23:45 | Operative Note ---
Date of procedure: 03/17/18 Pre-op diagnosis: right limb threatening ischemia Post-op diagnosis: same Procedure: right fem-pop bypass graft thrombectomy with revision Complications: none Anesthesia: GETA Surgeon: Harrison Fam Was there an it assistant present: No Estimated blood loss (cc): 200 Specimen: none Condition: stable Disposition: PACU Procedure in Detail: History Adolph Motley is an 82-year-old white male with a history of severe vascular disease. In December he had undergone an extensive revascularization for right lower extremity ischemia. This included a right external iliac artery stent angioplasty, and ileal femoral endarterectomy with patch angioplasty, a right femoral to [id number] popliteal artery bypass graft, and a right popliteal artery endarterectomy. He was seen in the office in early January was doing well. However this past weekend the patient developed pain in the right leg. His son did not discover this issue until Wednesday. He came to the vascular lab today for testing which revealed an ankle-brachial index of only 0.18 on the right and occluded graft by duplex scanning. The patient is now taken to the operating room as an emergency for limb threatening ischemia of the right lower extremity. Procedure After informed consent was obtained the patient was taken to the recovery room from the emergency room. General endotracheal anesthesia was established. The right lower extremity was sterilely prepped and draped. A timeout protocol was observed. The previously made incision at the [id number] location of the distal thigh was then used and the dissection was carried down to the popliteal area. Dense scarring was found around synthetic graft. A very laborious dissection was necessary in order to dissect the graft and gained control of the distal popliteal artery. After this was accomplished an incision was made on the foot of the graft. Acute and subacute thrombus was identified. The area was then flushed and the clot was removed. A 4 Maltese Conrado catheter was then passed distally. Was able to pass a distance of [address] it near the distal tibia. This is most likely in the peroneal artery as this was the best artery for runoff on previous exams. Backbleeding was established. This area was then flushed with heparinized saline and clamped. Attention was then directed retrograde. The 4 Maltese Conrado catheter was then passed multiple times and a large amount of clot was removed that was acute and subacute. Excellent pulsatile flow was restored. The patch angioplasty site was then closed after backbleeding the graft and then flushing with heparinized saline. After appropriate backbleeding and flushing pulsatile flow was noted through the graft and into the popliteal artery. However a redundancy of the graft was detected at this time. Therefore thinking this may have been some weight contributed to the graft failure the graft was then revised and a small section of the graft was excised and then an end to end anastomosis of the graft created. This was performed with 6-0 Prolene. Again after appropriate backbleeding and flushing the graft was opened and pulsatile flow was restored again back into the popliteal system. The wound was then irrigated and hemostasis achieved. Doppler signals were not identified at the ankle which is thought due to the severity of ischemia and the dominant runoff via the peroneal artery. It is thought with warming of the foot the Doppler signals will return. The wound was then closed in layers using absorbable suture. There were no intraoperative complications. The patient was extubated in the operating room and taken to the recovery room in stable condition.
--- NOTE | 2018-03-18 00:07 | Anesthesia Evaluation Post Op ---
Date of Encounter: 03/18/18 Time of Encounter: 00:31 Notes: Patient's vital signs have been reviewed. Patient is stable postoperatively and has adequately recovered from anesthesia. Patient is determined to have stable airway patency and respiratory function including respiratory rate and oxygen saturation. Patient has a stable heart rate, blood pressure and adequate hydration. Patients mental status is acceptable. Patients temperature is appropriate. Pain and nausea are adequately controlled. - Discharge PostOp Status: Transfer Patient to floor
[2018-03-18] MEDS ORDERED: Ondansetron 4 MG/2 ML VIAL IVP PRN (00:45)
[2018-03-18] MEDS ORDERED: Naloxone 0.4 MG/ML INJ IVP PRN (00:45)
[2018-03-18] MEDS: 0.9 % Sodium Chloride 1,000 ML IVC SCH ×2 (01:05→15:52)
[2018-03-18 03:54] LABS: Basophils % 0.1 %; Hematocrit 34.2 % (37.5-50.1); Hemoglobin 10.9 g/dL (12.9-16.9); Immature Granulocytes % 0.3 % (0-4); Lymphocytes # 0.9 K/mcL (0.6-4.6); Mean Corpuscular HGB Conc 31.9 g/dL (31.6-35.5); Mean Corpuscular Hemoglobin 28.5 pg (28.0-33.3); Mean Corpuscular Volume 89.3 fL (83.0-100.0); Mean Platelet Volume 9.8 fL (9.4-12.4); Monocytes # 0.1 K/mcL (0.0-1.3); Monocytes % 1.5 %; Neutrophils # 7.8 K/mcL (1.6-8.9); Platelet Count 211 K/mcL (140-400); Red Blood Count 3.83 M/mcL (4.19-5.50); Red Cell Distribution Width 14.1 % (11.5-14.5); Segmented Neutrophils % 88.1 %
[2018-03-18 04:02] LABS: BUN/Creatinine Ratio 13 (6-26); Blood Urea Nitrogen 16 mg/dL (8-23); Calcium 8.4 mg/dL (8.6-10.3); Carbon Dioxide 24 mEq/L (23-29); Chloride 108 mEq/L (98-107); Glucose 126 mg/dL (70-105); Osmolality,Calculated 293 (280-300); Potassium 3.6 mEq/L (3.5-5.1); Sodium 140 mEq/L (136-145); eGFR For African Americans > 60 (> 60); eGFR For Non-African Americans 56 (> 60)
[2018-03-18] MEDS: *HR* HYDROcodone/Acet 5/325 mg TABLET PO PRN ×2 (06:36→12:42)
[2018-03-18] MEDS ORDERED: Famotidine 20 MG TABLET PO SCH ×2 (07:30→16:30)
[2018-03-18] MEDS ORDERED: Aspirin Enteric Coated 81 MG Tablet PO SCH (09:00)
[2018-03-18] MEDS ORDERED: Lisinopril 20 MG TABLET PO SCH (09:00)
[2018-03-18] MEDS: Acetaminophen 325 MG TABLET PO PRN ×2 (10:49→17:02)
[2018-03-18 15:28] VITALS: BP 127/60
--- NOTE | 2018-03-18 15:50 | Electrocardiograph Report ---
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
--- NOTE | 2018-03-18 17:26 | Discharge Summary ---
Date of Encounter: 03/18/18 Time of Encounter: 17:23 - Discharge Diagnosis (1) S/P CABG x 2 Priority: Secondary Status: Chronic Comments: History of open heart bypass grafting in the remote past (2) PAD (peripheral artery disease) Priority: Primary Status: Acute Comments: Subacute occlusion of right femoral-popliteal bypass graft (3) Hypertension Priority: Secondary Status: Chronic Comments: History of hypertension Qualifiers: Hypertension type: essential hypertension Qualified Code(s): I10 - Essential (primary) hypertension (4) Hyperlipidemia Priority: Secondary Status: Chronic Comments: History of hypercholesterolemia Qualifiers: Hyperlipidemia type: unspecified Qualified Code(s): E78.5 - Hyperlipidemia , unspecified - Hospital Course Hospital course: Mr. Wei is a 82 year old male Who presented with a 4-5 day history of right lower extremity symptoms. The patient had noninvasive studies which showed an ankle-brachial index of only 0.18 on the right and 0.49 on the left. Duplex scanning showed no flow in his right femoral to [id number] popliteal artery bypass graft. Therefore the patient was taken to the operating room as an emergency last night. A thrombectomy of the graft was performed and a revision of the graft was performed. On visit today the patient is feeling better. He has chronic neuropathic pain for which he takes gabapentin. The right foot is warm and pink with excellent Doppler signals. The patient was felt fit for discharge today. Was seen in evaluation by rehabilitative services. He will obtain outpatient care for further rehabilitation. - Time Spent with Patient Total time spent providing and/or coordinating discharge services: - Discharge Medications Prescriptions: HYDROcodone/Acet 5/325 mg [Thomas 5-325 mg] 1 tab PO Q6HR PRN 7 Days #14 tablet PRN Reason: Moderate Pain Clopidogrel [Plavix] 75 mg PO DAILY #30 tablet Home Medications: Aspirin [Lo-Dose Aspirin EC] 81 mg PO DAILY 01/04/18 [History] Enalapril Maleate [Vasotec] 20 mg PO DAILY 01/04/18 [History] Famotidine [Pepcid] 20 mg PO BID 01/04/18 [History] Gabapentin [Neurontin] 200 mg PO HS 01/04/18 [History] Metoprolol [Lopressor] 25 mg PO BID 01/04/18 [History] Rosuvastatin Calcium 20 mg PO HS 01/04/18 [History] Clopidogrel [Plavix] 75 mg PO DAILY #30 tablet 03/18/18 [Rx] HYDROcodone/Acet 5/325 mg [Thomas 5-325 mg] 1 tab PO Q6HR PRN 7 Days #14 tablet 03/18/18 [Rx] Allergies/Adverse Reactions: 3 Allergy/AdvReac Type Severity Reaction Status Date / Time No Known Allergies Allergy Verified 03/17/18 18:48 Date of admission: 03/17/18 20:22 Primary care physician: May Frank CNP Consults: 03/18/18 00:45 Consult to Physical Therapy [CONS] Routine Comment: Evaluate, develop and implement POC Reason for Consult: elderly male s/p right leg thrombectomy-difficulty walking pre op Does patient have active BEDREST order?: No Is patient medically & hemodynamically stable?: Yes Patient assessed for mobility or mobilized this visit?: No Procedure(s) Performed: Thrombectomy with revision of right femoral-popliteal bypass graft Discharging clinician: Harrison Fam Anticipated date of discharge: 03/18/18 Exam Vital Signs, Last 4 Hours Temp Pulse Resp BP Pulse Ox 03/18/18 17:13 75 03/18/18 17:12 97 03/18/18 17:07 75 20 98 03/18/18 15:26 98.2 F 76 16 127/60 96 03/18/18 14:11 73 20 97 General: Present: No Apparent Distress HEENT: Present: Atraumatic Neck: Absent: JVD Cardiac: Present: Reg Rate and Rhythm Lungs: Present: Normal Breath Sounds Neuro: Present: Alert and responsive, No focal deficits noted, Cranial nerves grossly intact Abdomen: Present: Soft Vascular: Present: Color/Temperature (Right foot is warm and pink), Surgical incisions (Dry dressing on right above-knee popliteal artery incision), Other ( Patient has multiphasic Doppler signal at the right ankle). Absent: Cyanosis, Edema Skin: Present: No rashes noted on visualized skin - Patient Status Disposition: Home Health Service Condition: Good Functional capacity at discharge: uses cane/walker Overall status at discharge: patient is progressing back to baseline - Discharge Instructions Follow Up With: May Frank CNP [Primary Care Provider] - 03/25/18 10:00 am () Harrison Fam MD [Partnered Physician] - 04/06/18 11:45 am Forms: ED Satisfaction Letter Additional Instructions: Continue usual home medications Begin Plavix 75 mg a day for 90 days Remove right thigh incision tomorrow. Keep right thigh incision area dry for 5 days following surgery - Diet and Activity Activity: increase activity as tolerated Diet: advance to your usual diet - VTE Documentation of Mechanical Device: Intermittent pneumatic compression device
--- NOTE | 2018-03-18 17:32 | Physician Discharge Referral ---
Home Health/Hosp Referral Info Attending Provider: Dr. Fam Provider in Charge Post Discharge: PCP - Diagnosis (1) S/P CABG x 2 Priority: Secondary Status: Chronic (2) PAD (peripheral artery disease) Priority: Primary Status: Acute (3) Hypertension Priority: Secondary Status: Chronic (4) Hyperlipidemia Priority: Secondary Status: Chronic - Respiratory Orders Smoking Cessation: Smoking cessation has been advised. For more information, call the [place] Tobacco Quit Line at 1-506-DLYW-NOW. - Diet/Nutrition Diet/Nutrition Orders: Regular - Activity Activity Orders: Ambulate, Walker - Services Needed Following services are medically necessary services: Physical Therapy, Occupational Therapy - Transfer Medications Prescriptions: HYDROcodone/Acet 5/325 mg [Garibaldi 5-325 mg] 1 tab PO Q6HR PRN 7 Days #14 tablet PRN Reason: Moderate Pain Clopidogrel [Plavix] 75 mg PO DAILY #30 tablet Home Medications: Aspirin [Lo-Dose Aspirin EC] 81 mg PO DAILY 01/04/18 [History] Enalapril Maleate [Vasotec] 20 mg PO DAILY 01/04/18 [History] Famotidine [Pepcid] 20 mg PO BID 01/04/18 [History] Gabapentin [Neurontin] 200 mg PO HS 01/04/18 [History] Metoprolol [Lopressor] 25 mg PO BID 01/04/18 [History] Rosuvastatin Calcium 20 mg PO HS 01/04/18 [History] Clopidogrel [Plavix] 75 mg PO DAILY #30 tablet 03/18/18 [Rx] HYDROcodone/Acet 5/325 mg [Gar[place]di 5-325 mg] 1 tab PO Q6HR PRN 7 Days #14 tablet 03/18/18 [Rx] Allergies/Adverse Reactions: 3 Allergy/AdvReac Type Severity Reaction Status Date / Time No Known Allergies Allergy Verified 03/17/18 18:48 Certification: Further, I certify that my clinical findings support that this patient is homebound (i.e. absences from home require considerable and taxing effort and are for medical reasons or amish services or infrequently or short duration when for other reasons) because: Homebound Reason: Patient requires assistance of a person or device to safely leave home, Post-surgery restriction and or conditions limit ability to leave home, Leaving home requires considerable and taxing effort due to condition Attestation: My signature below is to certify that this patient is under my care and that I, or nurse practitioner, or a physician's family medicine physician assistant working with me, has a face-to -face encounter with this patient.
[2018-03-18] MEDS ORDERED: Gabapentin 100 MG CAPSULE PO SCH (21:00)
== END 2018-03-18 18:50 | disposition home health service (06) | DRG 254 ==
LOC: EMEROO 17:53 → 2NNU 20:18
PROVIDERS: ADMIT Surgery Vascular Surgery; ATTEND Surgery Vascular Surgery

== ENCOUNTER 2018-09-24 10:26 | Inpatient (IN) ==
[2018-09-24] MEDS ORDERED: Naloxone 0.4 MG/ML INJ IVP PRN (13:38)
[2018-09-24] MEDS ORDERED: *HR* OxyCODONE Immed Rel 5 MG TABLET PO PRN (13:38)
[2018-09-24] MEDS ORDERED: Acetaminophen 325 MG TABLET PO PRN (13:38)
[2018-09-24] MEDS ORDERED: *HR* Heparin 5,000 UNIT/ML VIAL IVP PRN ×2 (14:08)
--- NOTE | 2018-09-24 14:14 | Internal Med History&Physical ---
Date of Encounter: 09/24/18 Time of Encounter: 13:30 Internal Medicine - H&P: HPI Chief complaint: SOB Admitted From: Hospital to Hospital Transfer History of present illness: Mr. Wei is a 83 year old male with past mental history of CAD status post CABG in , COPD, PAD, tobacco abuse, presented to [facility] this morning for SOB. He states that he has been having progressive worsening SOB over the last 2 weeks associated with cough and mild, whitish sputum production. He also had an episode of chest tightness when he woke up from sleep; substernal, non- radiating, no aggravating/relieving factors, no longer has it now, not associate d with N/V or diaphoresis. Denies any fever/chills or sick contacts. No recent immobilization or prolonged travel history. Denies any orthopnea, PND, or leg swelling. States that he smokes "continuously at home". At the outside hospital, he was afebrile, tachycardic with elevated BP, saturating 99% on 3L. lap showed leukocytosis of 13.6, potassium of 2.9, creatinine of 1.32, troponin of 0.1 followed by 0.3. EKG shows sinus tachycardia with minimal ST depression in lead III and aVF. Chest x-ray was reported to show small right pleural effusion with possible lower lobe pneumonia. Patient was given aspirin, IV Lasix 20mg, IV Solu-Medrol 125mg, Rocephin/azithromycin, and started on heparin drip at the outside hospital. Patient was transferred to [facility] for further management. Past Med Surg Social Fam HX - Past Medical History Attestation: Yes The following information was validated with the patient. Medical history: COPD, coronary artery disease, hypertension, peripheral artery disease Additional medical history: rls. cataracts. vertigo Psychiatric history: no psych history - Past Surgical History Surgical History: angioplasty/stent, cataract, coronary bypass (CABG), vascular surgery Additional surgical history: heart cath- stents - Social History Smoking Status: Current every day smoker Smokeless Tobacco Status: No Alcohol use: none Drug use: none - Family History Father Living Status: Hx Family Cardiac Disorders: Yes (NM, CAD) Mother Living Status: Sister Living Status: Internal Medicine - H&P: Meds Aspirin [Lo-Dose Aspirin EC] 81 mg PO DAILY 01/04/18 [History] Enalapril Maleate [Vasotec] 20 mg PO DAILY 01/04/18 [History] Famotidine [Pepcid] 20 mg PO BID 01/04/18 [History] Gabapentin [Neurontin] 200 mg PO HS 01/04/18 [History] Metoprolol [Lopressor] 25 mg PO BID 01/04/18 [History] Rosuvastatin Calcium 20 mg PO HS 01/04/18 [History] Clopidogrel [Plavix] 75 mg PO DAILY #30 tablet 03/18/18 [Rx] HYDROcodone/Acet 5/325 mg [Clear 5-325 mg] 1 tab PO Q6HR PRN 7 Days #14 tablet 03/18/18 [Rx] Allergy/AdvReac Type Severity Reaction Status Date / Time No Known Allergies Allergy Verified 03/17/18 18:48 All Systems PM: A 10-system review of systems was performed and is negative for pertinent findings except as documented above in the HPI. - Constitutional Exam: General: Alert and oriented, not in acute distress. HEENT:EOMI, pupils equal, round and reactive. Cardiovascular:Normal S1 & S2, No JVD. Regular rhythm, borderline tachycardia Lungs: Scattered wheezes in both lung yoder, no rales. Unable to appreciate rhonchi Abdomen:Soft, non-tender, no rigidity. Extremities:No deformity or swelling Neurological:Normal cognition and motor skills. Non-focal Skin:Normal color, no rash, no lesions. Pulses:Carotid and radial pulses normal +2. Rest of the physical exam is non contributory - Assessment and plan (1) COPD exacerbation Current Visit: Yes Status: Acute Assessment and plan: Prolonged shortness of breath, cough with mild sputum production significant smoking history CXR suggestive of RLL PNA with leukocytosis Was given IV Solu-Medrol, IV Tera/azithromycin and duoneb at the outside hospital continue steroids, azithromycin, and duoneb check RIP (2) NSTEMI (non-ST elevated myocardial infarction) Current Visit: Yes Status: Acute Assessment and plan: significant history of CAD s/p CABG in 1990s troponin 0.1-0.3 at the OSH, could be attributed to type II event due to the above but unable to exclude type I event. Especially in the setting of chest tightness that he experienced this morning EKG stat trend troponin was loaded with ASA and started on hep gtt at the OSH, continue resume home meds for CAD once reconciled Echocardiogram (3) CAP (community acquired pneumonia) Current Visit: Yes Status: Acute Assessment and plan: as above strep/legionella ag Qualifiers: Laterality: right Lung location: lower lobe of lung Qualified Code(s): J18.1 - Lobar pneumonia, unspecified organism (4) CAD (coronary artery disease) Current Visit: Yes Status: Acute Assessment and plan: as above Qualifiers: Coronary Disease-Associated Artery/Lesion type: [place] artery [place] vs. transplanted heart: [place] heart Associated angina: angina presence unspecified Qualified Code(s): I25.10 - Atherosclerotic heart disease of [place] coronary artery without angina pectoris (5) PAD (peripheral artery disease) Current Visit: No Status: Chronic Assessment and plan: resume home meds once reconciled (6) Hyperlipidemia Current Visit: No Status: Chronic Assessment and plan: resume home meds once reconciled Qualifiers: Hyperlipidemia type: unspecified Qualified Code(s): E78.5 - Hyperlipidemia, unspecified (7) Hypertension Current Visit: No Status: Chronic Assessment and plan: resume home meds once reconciled Qualifiers: Hypertension type: essential hypertension Qualified Code(s): I10 - Essential (primary) hypertension (8) Tobacco abuse Current Visit: Yes Status: Chronic Assessment and plan: counseling provided NRT (9) DVT prophylaxis Current Visit: Yes Status: Acute Assessment and plan: hep gtt - Time Spent With Patient Total time spent is greater than 50% in coordination of care (as documented) at patient's floor/unit and/or counseling patient: 38 mins
[2018-09-24] MEDS: Nicotine 21 MG PATCH.TD24 TD SCH (14:33)
[2018-09-24] MEDS: Heparin 25,000 UNIT/500 ML D5W 25,000 UNIT/500 ML BAG IVC SCH (14:34)
[2018-09-24] MEDS: Ipratropium/Albuterol Neb 3 ML IH SCH ×2 (16:22→19:59)
[2018-09-24 16:26] LABS: Basophils % 0.1 %; Hematocrit 33.9 % (37.5-50.1); Hemoglobin 10.5 g/dL (12.9-16.9); Immature Granulocytes % 0.7 % (0-4); Lymphocytes # 0.5 K/mcL (0.6-4.6); Lymphocytes % 3.8 %; Mean Corpuscular Volume 83.9 fL (83.0-100.0); Mean Platelet Volume 9.2 fL (9.4-12.4); Monocytes # 0.2 K/mcL (0.0-1.3); Monocytes % 1.4 %; Neutrophils # 12.5 K/mcL (1.6-8.9); Platelet Count 311 K/mcL (140-400); Red Blood Count 4.04 M/mcL (4.19-5.50)
[2018-09-24 16:34] LABS: INR 1.3; Prothrombin Time 14.4 Seconds (9.4-12.1)
[2018-09-24 16:37] LABS: Adenovirus Not Detected (Not Detect); Coronavirus 229E Not Detected (Not Detect); Coronavirus HKU1 Not Detected (Not Detect); Coronavirus NL63 Not Detected (Not Detect); Coronavirus OC43 Not Detected (Not Detect); Human Metapneumovirus Not Detected (Not Detect); Human Rhinovirus/Enterovirus Not Detected (Not Detect)
[2018-09-24 16:38] LABS: Bordetella Pertussis Not Detected (Not Detect); Chlamydophila pneumoniae Not Detected (Not Detect); Influenza A Subtype 2009 H1 Not Detected (Not Detect); Influenza A Untypeable Not Detected (Not Detect); Influenza B Not Detected (Not Detect); Mycoplasma pneumoniae Not Detected (Not Detect); Parainfluenza Virus 1 Not Detected (Not Detect); Parainfluenza Virus 2 Not Detected (Not Detect); Parainfluenza Virus 3 Not Detected (Not Detect); Parainfluenza Virus 4 Not Detected (Not Detect); Respiratory Syncytial Virus DETECTED (Not Detect)
[2018-09-24 16:49] LABS: BUN/Creatinine Ratio 18 (6-26); Blood Urea Nitrogen 24 mg/dL (8-23); Calcium 8.8 mg/dL (8.6-10.3); Carbon Dioxide 27 mEq/L (23-29); Chloride 104 mEq/L (98-107); Glucose 164 mg/dL (70-105); Osmolality,Calculated 304 (280-300); Potassium 3.8 mEq/L (3.5-5.1); Sodium 143 mEq/L (136-145); eGFR For Non-African Americans 52 (> 60)
[2018-09-24] MEDS: MethylPREDNISolone 40 MG/ML VIAL IVP SCH (16:57)
[2018-09-24 17:00] LABS: Troponin I 0.48 ng/mL (< 0.04)
[2018-09-24] MEDS: traMADol 50 MG TABLET PO PRN (20:09)
[2018-09-24] MEDS: Gabapentin 100 MG CAPSULE PO SCH (20:10)
[2018-09-24] MEDS: Famotidine 20 MG TABLET PO SCH (20:10)
[2018-09-25] MEDS: Ipratropium/Albuterol Neb 3 ML IH SCH ×7 (00:05→23:13)
[2018-09-25 00:41] LABS: Basophils % 0.1 %; Hematocrit 29.1 % (37.5-50.1); Immature Granulocytes % 0.4 % (0-4); Lymphocytes # 0.6 K/mcL (0.6-4.6); Lymphocytes % 5.3 %; Mean Corpuscular HGB Conc 30.9 g/dL (31.6-35.5); Mean Corpuscular Hemoglobin 25.4 pg (28.0-33.3); Mean Corpuscular Volume 82.2 fL (83.0-100.0); Mean Platelet Volume 9.4 fL (9.4-12.4); Monocytes # 0.5 K/mcL (0.0-1.3); Monocytes % 4.2 %; Neutrophils # 10.4 K/mcL (1.6-8.9); Platelet Count 260 K/mcL (140-400); Red Blood Count 3.54 M/mcL (4.19-5.50); Red Cell Distribution Width 15.2 % (11.5-14.5)
[2018-09-25 00:58] LABS: BUN/Creatinine Ratio 20 (6-26); Blood Urea Nitrogen 26 mg/dL (8-23); Calcium 8.1 mg/dL (8.6-10.3); Carbon Dioxide 25 mEq/L (23-29); Chloride 104 mEq/L (98-107); Glucose 132 mg/dL (70-105); Osmolality,Calculated 297 (280-300); Potassium 3.1 mEq/L (3.5-5.1); Sodium 140 mEq/L (136-145); eGFR For Non-African Americans 54 (> 60)
[2018-09-25] MEDS: MethylPREDNISolone 40 MG/ML VIAL IVP SCH ×2 (04:43→17:59)
[2018-09-25] MEDS: Famotidine 20 MG TABLET PO SCH ×2 (08:53→19:48)
[2018-09-25] MEDS: Aspirin Enteric Coated 81 MG Tablet PO SCH (08:54)
[2018-09-25] MEDS: Potassium Chloride Elixir 20 MEQ/15 ML UDC PO SCH ×2 (08:54→11:22)
[2018-09-25] MEDS: Nicotine 21 MG PATCH.TD24 TD SCH (08:54)
[2018-09-25] MEDS: Lisinopril 20 MG TABLET PO SCH (08:54)
[2018-09-25] MEDS: cefTRIAXone 1,000 MG in Water for inj. (sterile) 20 ML 10 ML IVP SCH (08:54)
[2018-09-25] MEDS: Azithromycin 500 MG in D5% in Water 250 ML IVPB SCH (08:55)
--- NOTE | 2018-09-25 11:26 | Internal Med Progress Note ---
Hospitalist Progress Note - Encounter Date of Encounter: 09/25/18 Time of Encounter: 08:45 - Subjective Interval History: Pt reports some improvement in his SOB, denies CP, palpitation, LE swelling. Cough is also getting slightly better. - Exam Vitals: Temp Pulse Resp BP Pulse Ox 98.1 F 86 16 110/60 97 09/25/18 07:48 09/25/18 07:48 09/25/18 07:48 09/25/18 07:48 09/25/18 07:48 Exam: General: Alert and oriented, not in acute distress. Cardiovascular:Normal S1 & S2, No JVD. Regular rhythm, regular rhythm Lungs: Scattered wheezes in both lung yoder, no rales. Unable to appreciate rhonchi Abdomen:Soft, non-tender, no rigidity. Extremities:No deformity or swelling Neurological:Normal cognition and motor skills. Non-focal - Assessment and Plan (1) COPD exacerbation Current Visit: Yes Status: Acute Assessment and Plan: Prolonged shortness of breath, cough with mild sputum production significant smoking history CXR suggestive of RLL PNA with leukocytosis, RSV +ve continue steroids, abx, and duoneb wean down O2 (2) NSTEMI (non-ST elevated myocardial infarction) Current Visit: Yes Status: Acute Assessment and Plan: significant history of CAD s/p CABG in troponin peaked at 0.48, could be attributed to type II event due to the above but unable to exclude type I event. Especially in the setting of chest tightness that he experienced on the day of presentation EKG unremarkable Echo pending, will continue hep gtt till it is reported resume home meds for CAD (3) CAP (community acquired pneumonia) Current Visit: Yes Status: Acute Assessment and Plan: as above strep/legionella ag -ve (4) CAD (coronary artery disease) Current Visit: Yes Status: Acute Assessment and Plan: as above (5) PAD (peripheral artery disease) Current Visit: No Status: Chronic Assessment and Plan: resume home meds (6) Hyperlipidemia Current Visit: No Status: Chronic Assessment and Plan: resume home meds (7) Hypertension Current Visit: No Status: Chronic Assessment and Plan: resume home meds (8) Tobacco abuse Current Visit: Yes Status: Chronic Assessment and Plan: counseling provided NRT (9) DVT prophylaxis Current Visit: Yes Status: Acute Assessment and Plan: hep gtt - Time Spent with Patient Total time spent is greater than 50% in coordination of care (as documented) at patient's floor/unit and/or counseling patient: Plan of Care Discussed with: patient (RN) Internal Medicine: Result - Labs CBC & Chem 7: 09/25/18 00:13 09/25/18 00:13 Labs: Short CBC 09/24/18 09/25/18 Range/Units 16:01 00:13 WBC 13.3 H 11.5 H (4.3-11.1) K/mcL Hgb 10.5 L 9.0 L D (12.9-16.9) g/dL Hct 33.9 L 29.1 L (37.5-50.1) % Plt Count 311 260 (140-400) K/mcL Neutrophils # 12.5 H 10.4 H (1.6-8.9) K/mcL BMP 09/24/18 09/25/18 16:01 00:13 Sodium 143 140 Potassium 3.8 3.1 L Chloride 104 104 Carbon Dioxide 27 25 BUN 24 H 26 H Creatinine 1.32 H 1.28 Glucose 164 H 132 H Calcium 8.8 8.1 L Cardiac Enzymes 09/24/18 09/25/18 Range/Units 16:01 00:13 Troponin I 0.48 H* 0.39 H* (< 0.04) ng/mL - ABG Interpretation ABG results: PT/INR, D-dimer PT 14.4 Seconds (9.4-12.1) H 09/24/18 16:01 Consult Discharge Plan - Plan Referrals: NONE,PCP [Primary Care Provider] - (3) CAP (community acquired pneumonia) Qualifiers: Laterality: right Lung location: lower lobe of lung Qualified Code(s): J18.1 - Lobar pneumonia, unspecified organism (4) CAD (coronary artery disease) Qualifiers: Coronary Disease-Associated Artery/Lesion type: [place] artery [place] vs. transplanted heart: [place] heart Associated angina: angina presence unspecified Qualified Code(s): I25.10 - Atherosclerotic heart disease of [place] coronary artery without angina pectoris (6) Hyperlipidemia Qualifiers: Hyperlipidemia type: unspecified Qualified Code(s): E78.5 - Hyperlipidemia, unspecified (7) Hypertension Qualifiers: Hypertension type: essential hypertension Qualified Code(s): I10 - Essential (primary) hypertension
[2018-09-25] MEDS: Heparin 25,000 UNIT/500 ML D5W 25,000 UNIT/500 ML BAG IVC SCH (14:59)
[2018-09-25] MEDS: *HR* Heparin 5,000 UNIT/ML VIAL SQ SCH (17:59)
[2018-09-25] MEDS: traMADol 50 MG TABLET PO PRN (19:47)
[2018-09-25] MEDS: Gabapentin 100 MG CAPSULE PO SCH (19:47)
[2018-09-26] MEDS: Ipratropium/Albuterol Neb 3 ML IH SCH ×6 (03:51→23:32)
[2018-09-26] MEDS: *HR* Heparin 5,000 UNIT/ML VIAL SQ SCH ×2 (05:03→17:29)
[2018-09-26] MEDS: MethylPREDNISolone 40 MG/ML VIAL IVP SCH ×2 (05:03→17:29)
[2018-09-26 06:28] LABS: Basophils % 0.1 %; Hematocrit 31.6 % (37.5-50.1); Hemoglobin 9.6 g/dL (12.9-16.9); Immature Granulocytes % 0.7 % (0-4); Lymphocytes # 0.7 K/mcL (0.6-4.6); Lymphocytes % 6.6 %; Mean Corpuscular HGB Conc 30.4 g/dL (31.6-35.5); Mean Corpuscular Hemoglobin 25.7 pg (28.0-33.3); Mean Corpuscular Volume 84.5 fL (83.0-100.0); Mean Platelet Volume 9.5 fL (9.4-12.4); Monocytes # 0.6 K/mcL (0.0-1.3); Monocytes % 5.4 %; Neutrophils # 9.2 K/mcL (1.6-8.9); Platelet Count 254 K/mcL (140-400); Red Blood Count 3.74 M/mcL (4.19-5.50); Red Cell Distribution Width 15.1 % (11.5-14.5); Segmented Neutrophils % 87.2 %
[2018-09-26 06:53] LABS: BUN/Creatinine Ratio 25 (6-26); Blood Urea Nitrogen 30 mg/dL (8-23); Calcium 8.2 mg/dL (8.6-10.3); Carbon Dioxide 26 mEq/L (23-29); Chloride 104 mEq/L (98-107); Glucose 145 mg/dL (70-105); Osmolality,Calculated 293 (280-300); Sodium 137 mEq/L (136-145); eGFR For Non-African Americans 57 (> 60)
[2018-09-26] MEDS: cefTRIAXone 1,000 MG in Water for inj. (sterile) 20 ML 10 ML IVP SCH (08:44)
[2018-09-26] MEDS: Azithromycin 500 MG in D5% in Water 250 ML IVPB SCH (08:45)
[2018-09-26] MEDS: Nicotine 21 MG PATCH.TD24 TD SCH (08:45)
[2018-09-26] MEDS: Lisinopril 20 MG TABLET PO SCH (08:45)
[2018-09-26] MEDS: Aspirin Enteric Coated 81 MG Tablet PO SCH (08:45)
[2018-09-26] MEDS ORDERED: Furosemide 40 MG/4 ML VIAL IVP ONE (09:58)
--- NOTE | 2018-09-26 09:58 | Internal Med Progress Note ---
Hospitalist Progress Note - Encounter Date of Encounter: 09/26/18 Time of Encounter: 08:00 - Subjective Interval History: Pt reports slight improvement in his SOB. No CP, palpitation, LE swelling. No fever/chills. - Exam Vitals: Temp Pulse Resp BP Pulse Ox 97.8 F 87 18 191/85 98 09/26/18 08:18 09/26/18 08:18 09/26/18 08:18 09/26/18 08:18 09/26/18 08:18 Exam: General: Alert and oriented, not in acute distress. Cardiovascular:Normal S1 & S2, No JVD. Regular rhythm, regular rhythm Lungs: bilateral end expiratory wheezes Abdomen:Soft, non-tender, no rigidity. Extremities:No deformity or swelling Neurological:Normal cognition and motor skills. Non-focal - Assessment and Plan (1) COPD exacerbation Current Visit: Yes Status: Acute Assessment and Plan: Prolonged shortness of breath, cough with mild sputum production significant smoking history CXR suggestive of RLL PNA with leukocytosis, RSV +ve slowly improving on steroids, abx, and duoneb. Continue wean down O2, 6min walk test (2) NSTEMI (non-ST elevated myocardial infarction) Current Visit: Yes Status: Acute Assessment and Plan: significant history of CAD s/p CABG in troponin peaked at 0.48, could be attributed to type II event due to the above but unable to exclude type I event. Especially in the setting of chest tightness that he experienced on the day of presentation EKG unremarkable Echo showed EF 65-70% with LV diastolic dysfunction. Hep gtt d/mar yesterday resume home meds for CAD (3) CAP (community acquired pneumonia) Current Visit: Yes Status: Acute Assessment and Plan: as above strep/legionella ag -ve (4) CAD (coronary artery disease) Current Visit: Yes Status: Acute Assessment and Plan: as above (5) PAD (peripheral artery disease) Current Visit: No Status: Chronic Assessment and Plan: resume home meds (6) Hyperlipidemia Current Visit: No Status: Chronic Assessment and Plan: resume home meds (7) Hypertension Current Visit: No Status: Chronic Assessment and Plan: resume home meds (8) Tobacco abuse Current Visit: Yes Status: Chronic Assessment and Plan: counseling provided NRT (9) Mitral stenosis Current Visit: Yes Status: Acute Assessment and Plan: incidental finding on echo, possible SCOOBY as well without significant LVOT outpatient follow up (10) DVT prophylaxis Current Visit: Yes Status: Acute Assessment and Plan: SQ hep - Time Spent with Patient Total time spent is greater than 50% in coordination of care (as documented) at patient's floor/unit and/or counseling patient: Plan of Care Discussed with: patient Internal Medicine: Result - Labs CBC & Chem 7: 09/26/18 06:07 09/26/18 06:07 Labs: Short CBC 09/26/18 Range/Units 06:07 WBC 10.5 (4.3-11.1) K/mcL Hgb 9.6 L (12.9-16.9) g/dL Hct 31.6 L (37.5-50.1) % Plt Count 254 (140-400) K/mcL Neutrophils # 9.2 H (1.6-8.9) K/mcL BMP 09/26/18 06:07 Sodium 137 Potassium 4.0 Chloride 104 Carbon Dioxide 26 BUN 30 H Creatinine 1.21 Glucose 145 H Calcium 8.2 L - ABG Interpretation ABG results: PT/INR, D-dimer PT 14.4 Seconds (9.4-12.1) H 09/24/18 16:01 - Impressions Impressions Echocardiogram 09/25/18 13:39 Impressions: LVEF 65-70%. Moderate concentric left ventricular hypertrophy. LV diastolic dysfunction with elevated filling pressures. Normal right ventricular structure and function. Moderately thickened mitral valve leaflets with reduced mobility of the posterior leaflet. Moderate mitral stenosis, MG 8 mmHg at 90 bpm. Possible SCOOBY of the anterior mitral valve leaflet. No significant LVOT gradient. Mild-moderate mitral regurgitation. Mild tricuspid regurgitation. Mild-moderate pulmonic regurgitation. Mild pulmonary hypertension. Left Ventricular Wall Motion: Rest Echo Findings All wall segments showed normal motion. Findings: Study Quality * Technically somewhat challenging exam. ECG Findings * Normal sinus rhythm. Left Ventricle * LVEF 65-70%. * Moderate concentric left ventricular hypertrophy. * LV diastolic dysfunction wtih elevated filling pressures. Right Ventricle * Normal right ventricular structure and function. Left Atrium * Moderate-severely dilated left atrium. Right Atrium * Normal right atrial size. Aortic Valve * No aortic regurgitation. * Trileaflet aortic valve. * Mildly thickened aortic valve leaflets. * No aortic stenosis. Mitral Valve * Moderate mitral annular calcification * Mild-moderate mitral regurgitation. * Moderately thickened mitral valve leaflets with reduced mobility of the posterior leaflet. * Moderate mitral stenosis, MG 8 mmHg at 90 bpm. * Possible SCOOBY of the anterior mitral valve leaflet. No significant LVOT gradient. Tricuspid Valve * Normal tricuspid valve structure. * Mild tricuspid regurgitation. * Mild pulmonary hypertension. * Estimated RA pressure is 8 mmHg. * Estimated RVSP is 46 mmHg. Pulmonic Valve * Pulmonic valve is not well visualized. * No pulmonic stenosis. * Mild-moderate pulmonic regurgitation. Pulmonary Artery * Pulmonary artery not well visualized. Aorta * Normally sized aortic root. Pericardium * There is no pericardial effusion present. Interatrial Septum * No evidence of PFO by color Doppler. IVC * The IVC is not dilated. * < 50% respiratory change. Consult Discharge Plan - Plan Referrals: NONE,PCP [Primary Care Provider] - (3) CAP (community acquired pneumonia) Qualifiers: Laterality: right Lung location: lower lobe of lung Qualified Code(s): J18.1 - Lobar pneumonia, unspecified organism (4) CAD (coronary artery disease) Qualifiers: Coronary Disease-Associated Artery/Lesion type: [place] artery [place] vs. transplanted heart: [place] heart Associated angina: angina presence unspecified Qualified Code(s): I25.10 - Atherosclerotic heart disease of [place] coronary [place] without angina pectoris (6) Hyperlipidemia Qualifiers: Hyperlipidemia type: unspecified Qualified Code(s): E78.5 - Hyperlipidemia, unspecified (7) Hypertension Qualifiers: Hypertension type: essential hypertension Qualified Code(s): I10 - Essential (primary) hypertension
--- NOTE | 2018-09-26 14:56 | Electrocardiograph Report ---
[address] [place], [place] [address] Test Date: 2018-09-24 Pat Name: Adolph Wei Department: 112 Room: 2A23 Gender: M Private Chef: : [id number] Requested By: Nithin Mccarty Order Number: [id number] Reading MD: Esperanza Monroy Measurements Intervals [place] Rate: 94 P: 30 MS: 168 QRS: 45 QRSD: 85 T: 55 QT: 398 QTc: 450 Interpretive Statements SINUS RHYTHM POSSIBLE LEFT ATRIAL ENLARGEMENT Electronically Signed On 09-26-2018 14:54:44 EST by Esperanza Monroy
[2018-09-26] MEDS: Famotidine 20 MG TABLET PO SCH (19:44)
[2018-09-26] MEDS: Gabapentin 100 MG CAPSULE PO SCH (19:44)
[2018-09-26] MEDS: traMADol 50 MG TABLET PO PRN (20:02)
[2018-09-27] MEDS: Ipratropium/Albuterol Neb 3 ML IH SCH ×5 (03:46→20:23)
[2018-09-27] MEDS: MethylPREDNISolone 40 MG/ML VIAL IVP SCH ×2 (05:08→17:34)
[2018-09-27] MEDS: *HR* Heparin 5,000 UNIT/ML VIAL SQ SCH ×2 (05:08→17:34)
[2018-09-27 05:44] LABS: Basophils % 0.1 %; Hematocrit 34.2 % (37.5-50.1); Hemoglobin 10.6 g/dL (12.9-16.9); Immature Granulocytes % 0.8 % (0-4); Lymphocytes # 1.1 K/mcL (0.6-4.6); Mean Corpuscular Hemoglobin 25.5 pg (28.0-33.3); Mean Corpuscular Volume 82.4 fL (83.0-100.0); Mean Platelet Volume 9.8 fL (9.4-12.4); Monocytes # 0.8 K/mcL (0.0-1.3); Monocytes % 6.8 %; Neutrophils # 9.4 K/mcL (1.6-8.9); Platelet Count 283 K/mcL (140-400); Red Blood Count 4.15 M/mcL (4.19-5.50); Segmented Neutrophils % 82.3 %
[2018-09-27 06:03] LABS: BUN/Creatinine Ratio 28 (6-26); Blood Urea Nitrogen 35 mg/dL (8-23); Calcium 8.3 mg/dL (8.6-10.3); Carbon Dioxide 26 mEq/L (23-29); Chloride 101 mEq/L (98-107); Glucose 127 mg/dL (70-105); Magnesium 2.2 mg/dL (1.6-2.6); Osmolality,Calculated 292 (280-300); Potassium 3.8 mEq/L (3.5-5.1); Sodium 136 mEq/L (136-145); eGFR For Non-African Americans 55 (> 60)
[2018-09-27] MEDS ORDERED: Azithromycin 250 MG TABLET PO SCH (09:00)
[2018-09-27] MEDS: Lisinopril 20 MG TABLET PO SCH (09:16)
[2018-09-27] MEDS: Aspirin Enteric Coated 81 MG Tablet PO SCH (09:16)
[2018-09-27] MEDS: Nicotine 21 MG PATCH.TD24 TD SCH (09:16)
[2018-09-27] MEDS: cefTRIAXone 1,000 MG in Water for inj. (sterile) 20 ML 10 ML IVP SCH (09:17)
--- NOTE | 2018-09-27 16:25 | Internal Med Progress Note ---
Hospitalist Progress Note - Encounter Date of Encounter: 09/27/18 Time of Encounter: 09:00 - Subjective Interval History: patient was seen and examined at bedside reports that his respiratory status has improved, denies CP, SOB, chest tightness, N/v/D - Exam Vitals: Temp Pulse Resp BP Pulse Ox 97.8 F 76 15 178/78 97 09/27/18 15:59 09/27/18 15:59 09/27/18 15:59 09/27/18 15:59 09/27/18 15:59 Exam: General: Alert and oriented, not in acute distress. Cardiovascular:Normal S1 & S2, No JVD. Regular rhythm, regular rhythm Lungs: bilateral end expiratory wheezes- improved Abdomen:Soft, non-tender, no rigidity. Extremities:No deformity or swelling Neurological:WRANGELL, No focal deficit - Assessment and Plan (1) COPD exacerbation Current Visit: Yes Status: Acute Assessment and Plan: Prolonged shortness of breath, cough with mild sputum production significant smoking history CXR suggestive of RLL PNA with leukocytosis, RSV +ve slowly improving on steroids, abx, and duoneb. wean down O2, 6min walk test urine antigens negative- Discontinued Zithromax - continue with rocephin (2) NSTEMI (non-ST elevated myocardial infarction) Current Visit: Yes Status: Acute Assessment and Plan: significant history of CAD s/p CABG in troponin peaked at 0.48 ? secondary to supply vs demand mismatch in setting of history of CAD EKG unremarkable Echo showed EF 65-70% with LV diastolic dysfunction. Hep gtt d/mar on 09/25 resume home meds for CAD ( ASA, plavix, BB, lisinopril, statin ) will get stress test in the AM as respiratory status has improved (3) CAP (community acquired pneumonia) Current Visit: Yes Status: Acute Assessment and Plan: as above strep/legionella ag -ve (4) PAD (peripheral artery disease) Current Visit: No Status: Chronic Assessment and Plan: resume home meds (5) Hypertension Current Visit: No Status: Chronic Assessment and Plan: resume home meds (6) Hyperlipidemia Current Visit: No Status: Chronic Assessment and Plan: resume home meds (7) Mitral stenosis Current Visit: Yes Status: Acute Assessment and Plan: incidental finding on echo, possible SCOOBY as well without significant LVOT outpatient follow up (8) Tobacco abuse Current Visit: Yes Status: Chronic Assessment and Plan: counseling provided NRT (9) CAD (coronary artery disease) Current Visit: Yes Status: Acute Assessment and Plan: as above (10) DVT prophylaxis Current Visit: Yes Status: Acute Assessment and Plan: SQ hep - Time Spent with Patient Total time spent is greater than 50% in coordination of care (as documented) at patient's floor/unit and/or counseling patient: Internal Medicine: Result - Labs CBC & Chem 7: 09/27/18 04:19 09/27/18 04:19 Labs: Short CBC 09/27/18 Range/Units 04:19 WBC 11.4 H (4.3-11.1) K/mcL Hgb 10.6 L (12.9-16.9) g/dL Hct 34.2 L (37.5-50.1) % Plt Count 283 (140-400) K/mcL Neutrophils # 9.4 H (1.6-8.9) K/mcL BMP 09/27/18 04:19 Sodium 136 Potassium 3.8 Chloride 101 Carbon Dioxide 26 BUN 35 H Creatinine 1.26 Glucose 127 H Calcium 8.3 L - ABG Interpretation ABG results: PT/INR, D-dimer PT 14.4 Seconds (9.4-12.1) H 09/24/18 16:01 Consult Discharge Plan - Plan Referrals: NONE,PCP [Primary Care Provider] - __ (3) CAP (community acquired pneumonia) Qualifiers: Laterality: right Lung location: lower lobe of lung Qualified Code(s): J18.1 - Lobar pneumonia, unspecified organism (5) Hypertension Qualifiers: Hypertension type: essential hypertension Qualified Code(s): I10 - Essential (primary) hypertension (6) Hyperlipidemia Qualifiers: Hyperlipidemia type: unspecified Qualified Code(s): E78.5 - Hyperlipidemia, unspecified (9) CAD (coronary artery disease) Qualifiers: Coronary Disease-Associated Artery/Lesion type: [place] artery [place] vs. transplanted heart: [place] heart Associated angina: angina presence unspecified Qualified Code(s): I25.10 - Atherosclerotic heart disease of [place] coronary artery without angina pectoris
[2018-09-27] MEDS: Gabapentin 100 MG CAPSULE PO SCH (21:53)
[2018-09-27] MEDS: Famotidine 20 MG TABLET PO SCH (21:53)
[2018-09-28] MEDS: Ipratropium/Albuterol Neb 3 ML IH SCH ×4 (00:46→11:04)
[2018-09-28 05:41] LABS: Hematocrit 32.6 % (37.5-50.1); Hemoglobin 10.3 g/dL (12.9-16.9); Mean Corpuscular HGB Conc 31.6 g/dL (31.6-35.5); Mean Corpuscular Hemoglobin 25.7 pg (28.0-33.3); Mean Corpuscular Volume 81.3 fL (83.0-100.0); Mean Platelet Volume 9.6 fL (9.4-12.4); Platelet Count 292 K/mcL (140-400); Red Blood Count 4.01 M/mcL (4.19-5.50); Red Cell Distribution Width 15.1 % (11.5-14.5)
[2018-09-28 05:58] LABS: BUN/Creatinine Ratio 29 (6-26); Blood Urea Nitrogen 38 mg/dL (8-23); Calcium 8.3 mg/dL (8.6-10.3); Carbon Dioxide 24 mEq/L (23-29); Chloride 104 mEq/L (98-107); Glucose 118 mg/dL (70-105); Osmolality,Calculated 294 (280-300); Potassium 3.6 mEq/L (3.5-5.1); Sodium 137 mEq/L (136-145); eGFR For Non-African Americans 51 (> 60)
[2018-09-28] MEDS ORDERED: Regadenoson 0.4 MG/5 ML SYRINGE IVP ONE (06:10)
[2018-09-28] MEDS: *HR* Heparin 5,000 UNIT/ML VIAL SQ SCH (06:19)
[2018-09-28] MEDS: MethylPREDNISolone 40 MG/ML VIAL IVP SCH (06:19)
[2018-09-28 07:42] VITALS: BP 192/80
[2018-09-28] MEDS ORDERED: 0.9 % Sodium Chloride 1,000 ML IVC SCH (08:15)
--- NOTE | 2018-09-28 09:19 | Cardiology Consult Note ---
<Michael Garza R - Last Filed: 09/28/18 10:31> Date of Encounter: 09/28/18 Time of Encounter: 09:17 Assessment and Plan (1) Elevated troponin Current Visit: Yes Status: Acute Troponins at outside facility 0.1, 0.3. At [facility] 0.48, 0.39 in setting of COPD exacerbation, PNA, RSV. Nondiagnostic for ACS. Suspect demand ischemia/type II [place]. Cardiac rehab not warranted. No ischemic ECG changes. Reports worsening dyspnea over recent weeks and associated chest tightness without radiation. Hx of CABG in . TTE 09/25/18 EF preserved, moderate MS. Stress test 12/2017 negative for ischemia or infarct. Gated EF >70%. Given recent ischemic eval, preserved EF, no further inpt cardiac work-up is currently warranted. Continue ASA, Statin. Increase BB and will add Imdur 30mg daily. Will coordinate outpt follow-up in 2-3 weeks. Anticipate sign off once seen and evaluated by Dr. Duff. (2) CAD (coronary artery disease) Current Visit: Yes Status: Acute Hx of CABG in the . Continue ASA, Plavix, Statin, BB. Qualifiers: Coronary Disease-Associated Artery/Lesion type: [place] artery [place] vs. transplanted heart: [place] heart Associated angina: angina presence unspecified Qualified Code(s): I25.10 - Atherosclerotic heart disease of [place] coronary artery without angina pectoris (3) Mitral stenosis Current Visit: Yes Status: Acute TTE shows moderately thickened mitral valve leaflets with reduced mobility of the posterior leaflet. Moderate mitral stenosis, MG 8 mmHg at 90 bpm. Possible SCOOBY of the anterior mitral valve leaflet. No significant LVOT gradient. Mild- moderate MR. Mild TR. Mild-moderate ID. Mild phtn. Increase BB. Will continue to monitor outpt. Qualifiers: Cardiac valve disease etiology: etiology unspecified Qualified Code(s): I05.0 - Rheumatic mitral stenosis Discussion w patient/family: The assessment and plan as outlined above was discussed with the patient and/or family members who expressed understanding and agreement. All questions were answered. Thank you for involving us in the care of your patient. Please call with any questions. I will discuss all the above with Dr. Duff and make changes as necessary. History of Present Illness Consult date: 09/28/18 Consult reason: Elevated troponin Chief complaint: Dyspnea, chest tightness History of present illness: Mr. Wei is a 83 year old male with PMH of CAD s/p CABG in , COPD, PAD, to bacco abuse, presented to an outside ED worsening dyspnea and chest tightness. He states that he has been having progressive worsening SOB over the last 2 weeks associated with cough and mild, whitish sputum production. He also had an episode of chest tightness when he woke up from sleep; substernal, non- radiating, no aggravating/relieving factors. States that he smokes "continuously at home". Pt has since been diagnosed with COPD exacerbation, PNA, and positive for RSV. Troponins at outside facility documented as 0.1, 0.3. At [facility] troponins 0.48, 0.39. Cardiology consulted for further recs. Prior CV testing: TTE 09/25/18: LVEF 65-70%. Moderate cLVH. LV diastolic dysfunction with elevated filling pressures. Normal RV structure and function. Moderately thickened mitral valve leaflets with reduced mobility of the posterior leaflet. Moderate mitral stenosis, MG 8 mmHg at 90 bpm. Possible SCOOBY of the anterior mitral valve leaflet. No significant LVOT gradient. Mild-moderate MR. Mild TR. Mild-moderate ID. Mild phtn. Nuclear stress test 12/20/17: Gated EF >70%. Perfusion imaging negative for ischemia or infarct. Past Med Surg Social Fam HX - Past Medical History Medical history: COPD, coronary artery disease, hypertension, peripheral artery disease Additional medical history: rls. cataracts. vertigo Psychiatric history: no psych history - Past Surgical History Surgical History: angioplasty/stent, cataract, coronary bypass (CABG), vascular surgery Additional surgical history: heart cath- stents - Social History Smoking Status: Current every day smoker Smokeless Tobacco Status: No Alcohol use: none Drug use: none - Family History Father Living Status: Hx Family Cardiac Disorders: Yes (ME, CAD) Mother Living Status: Sister Living Status: Medications and Allergies Aspirin [Lo-Dose Aspirin EC] 81 mg PO DAILY 01/04/18 [History] Enalapril Maleate [Vasotec] 20 mg PO DAILY 01/04/18 [History] Famotidine [Pepcid] 20 mg PO BID 01/04/18 [History] Gabapentin [Neurontin] 200 mg PO HS 01/04/18 [History] Rosuvastatin Calcium 20 mg PO HS 01/04/18 [History] Clopidogrel [Plavix] 75 mg PO DAILY #30 tablet 03/18/18 [Rx] Albuterol Sulfate [Ventolin Hfa] 2 puff IH Q6H PRN 09/24/18 [History] Azithromycin [Azithromycin 6-Tab Pack] 250 mg PO PER PKG DI #6 tab 09/28/18 [Rx] Budesonide/Formoterol 80/4.5 [Symbicort 80/4.5] 1 puff IH BID #1 hfa.aer.ad 09/28/18 [Rx] Cefdinir [Omnicef] 300 mg PO BID 5 Days #10 capsule 09/28/18 [Rx] Ipratropium/Albuterol Neb [Duoneb] 3 ml IH Q6HR PRN #15 inhsol 09/28/18 [Rx] Isosorbide MONOnitrate (24 HR) [Imdur] 30 mg PO DAILY #30 tab.er.24h 09/28/18 [ Rx] Metoprolol [Lopressor] 75 mg PO BID 30 Days #60 tablet 09/28/18 [Rx] Nebulizer and Compressor [Ombra Compressor System] 1 each MC PRN PRN #1 each 09/28/18 [Rx] Nicotine Patch [Nicoderm] 21 mg TD DAILY #30 patch.td24 09/28/18 [Rx] predniSONE [PredniSONE] 10 mg PO TAPER #21 tablet 09/28/18 [Rx] Allergy/AdvReac Type Severity Reaction Status Date / Time No Known Allergies Allergy Verified 03/17/18 18:48 All Systems Review: The remainder of the systems were reviewed and are negative - Cardiovascular Cardiovascular: as per HPI, chest pain at rest, chest pain with exertion, dyspne a at rest, dyspnea on exertion - Respiratory Respiratory: cough, dyspnea Physical Examination Vital Signs, Last 4 Hours Temp Pulse Resp BP Pulse Ox 09/28/18 07:38 98.7 F 80 18 192/80 96 Vital Signs Temp Pulse Resp BP Pulse Ox 09/28/18 07:38 98.7 F 80 18 192/80 96 09/28/18 04:21 98.0 F 73 16 178/73 96 09/28/18 03:56 16 97 09/28/18 00:52 98.3 F 75 17 182/79 98 09/28/18 00:46 17 97 09/27/18 20:24 16 94 09/27/18 20:21 98.1 F 76 17 126/64 100 09/27/18 15:59 97.8 F 76 15 178/78 97 09/27/18 15:19 18 95 09/27/18 12:05 97.9 F 79 16 167/71 95 09/27/18 11:02 97.9 F 78 15 166/64 96 09/27/18 10:18 18 94 Intake and Output 09/27/18 09/28/18 09/28/18 23:59 07:59 15:59 Intake Total 240 / 240 Balance 240 / 240 Intake: Oral 240 / 240 Other: Meal Lunch Percent of Meal Consumed 90% Weight 63.1 kg Patient Weight 09/28/18 23:59 Weight 63.1 kg General: Conversant, No Apparent Distress HEENT: Atraumatic, Normocephaly, Mucus Membranes Moist Neck: No JVD, Normal carotid pulses Cardiac: Reg Rate and Rhythm, Normal S1 and S2, Other (2/6 murmur) Lungs: Other (diminished) Neuro: Alert and responsive, No focal deficits noted Abdomen: Soft, Non-Tender Skin: No rashes noted on visualized skin Musculoskeletal: No Chest Wall Tenderness Extremities: No Clubbing, No Cyanosis, No Edema, Normal Pulses Results 09/28/18 04:36 09/28/18 04:36 Lab Results 09/28/18 09/28/18 04:36 04:36 WBC 11.2 H Hgb 10.3 L Hct 32.6 L Plt Count 292 Sodium 137 Potassium 3.6 Chloride 104 Carbon Dioxide 24 BUN 38 H Creatinine 1.33 H Glucose 118 H Calcium 8.3 L Short CBC 09/28/18 Range/Units 04:36 WBC 11.2 H (4.3-11.1) K/mcL Hgb 10.3 L (12.9-16.9) g/dL Hct 32.6 L (37.5-50.1) % Plt Count 292 (140-400) K/mcL BMP 09/28/18 Range/Units 04:36 Sodium 137 (136-145) mEq/L Potassium 3.6 (3.5-5.1) mEq/L Chloride 104 (98-107) mEq/L Carbon Dioxide 24 (23-29) mEq/L BUN 38 H (8-23) mg/dL Creatinine 1.33 H (0.70-1.30) mg/dL Glucose 118 H (70-105) mg/dL Calcium 8.3 L (8.6-10.3) mg/dL Active Medications Acetaminophen (Tylenol) 650 mg PO Q6HR PRN PRN Reason: Mild Pain/Fever Stop: 03/26/19 13:39 Albuterol/Ipratropium (Duoneb) 3 ml IH [id number] [facility] Stop: 03/26/19 16:01 Last Admin: 09/28/18 07:21 Dose: 3 ml Aspirin (Aspirin Ec) 81 mg PO DAILY [facility] Stop: 03/27/19 09:01 Last Admin: 09/27/18 09:16 Dose: 81 mg Clopidogrel Bisulfate (Plavix) 75 mg PO DAILY [facility] Stop: 03/27/19 09:01 Last Admin: 09/27/18 09:16 Dose: 75 mg Docusate Sodium (Colace) 100 mg PO DAILY [facility]; Protocol Stop: 03/27/19 17:31 Last Admin: 09/27/18 09:16 Dose: 100 mg Famotidine (Pepcid) 20 mg PO HS [facility]; Protocol Stop: 03/28/19 21:01 Last Admin: 09/27/18 21:53 Dose: 20 mg Gabapentin (Neurontin) 200 mg PO HS [facility] Stop: 03/26/19 21:01 Last Admin: 09/27/18 21:53 Dose: 200 mg Heparin Sodium (Porcine) (Heparin) 5,000 unit SQ Q12HCO [facility] Stop: 03/27/19 18:01 Last Admin: 09/28/18 06:19 Dose: 5,000 unit Ceftriaxone Sodium 1,000 mg/ (Sterile Water) 10 mls @ 600 mls/hr IVP DAILY [facility] Stop: 03/27/19 09:01 Last Admin: 09/27/18 09:17 Dose: 600 mls/hr Sodium Chloride (0.9 % Sodium Chloride) 1,000 mls @ 50 mls/hr IVC .Q20H [facility] Stop: 03/30/19 08:16 Lisinopril (Zestril) 40 mg PO DAILY [facility] Stop: 03/27/19 09:01 Last Admin: 09/27/18 09:16 Dose: 40 mg Methylprednisolone (Solu-Medrol) 40 mg IVP Q12HR [facility] Stop: 03/26/19 18:01 Last Admin: 09/28/18 06:19 Dose: 40 mg Metoprolol Tartrate (Lopressor) 50 mg PO BID [facility] Stop: 03/28/19 21:01 Last Admin: 09/27/18 21:53 Dose: 50 mg Naloxone HCl (Narcan) 0.4 mg IVP Q2MIN PRN PRN Reason: SEE COMMENTS Stop: 03/26/19 13:39 Nicotine (Nicoderm) 21 mg TD DAILY [facility]; Protocol Stop: 03/26/19 14:31 Last Admin: 09/27/18 09:16 Dose: 21 mg Oxycodone HCl (Roxicodone) 10 mg PO Q6HR PRN PRN Reason: Severe Pain Stop: 03/26/19 13:39 Polyethylene Glycol (Miralax) 17 gm PO BID PRN PRN Reason: Constipation Stop: 03/28/19 19:41 Last Admin: 09/26/18 20:02 Dose: 17 gm Rosuvastatin Calcium (Crestor) 20 mg PO HS [facility] Stop: 03/26/19 21:01 Last Admin: 09/27/18 21:53 Dose: 20 mg Tramadol HCl (Ultram) 50 mg PO Q6HR PRN PRN Reason: Moderate Pain Stop: 03/26/19 13:39 Last Admin: 09/26/18 20:02 Dose: 50 mg - Imaging and Cardiology Stress Test: report reviewed Echo: report reviewed - EKG Interpretation EKG results cardiology: personally reviewed (SR), other (12 hr tele AVG HR 74, SR, no significant pauses or arrhythmias noted.) Consult Discharge Plan - Plan Referrals: May Frank, DRUG ROOM CLERK [Advanced Practice Nurse] - (called and left message with name and birthday ) NONE,PCP [Primary Care Provider] - Prescriptions: Ipratropium/Albuterol Neb [Duoneb] 3 ml IH Q6HR PRN #15 inhsol PRN Reason: Shortness Of Breath Azithromycin [Azithromycin 6-Tab Pack] 250 mg PO PER PKG DI #6 tab Budesonide/Formoterol 80/4.5 [Symbicort 80/4.5] 1 puff IH BID #1 hfa.aer.ad Cefdinir [Omnicef] 300 mg PO BID 5 Days #10 capsule Isosorbide MONOnitrate (24 HR) [Imdur] 30 mg PO DAILY #30 tab.er.24h Metoprolol [Lopressor] 75 mg PO BID 30 Days #60 tablet Nebulizer and Compressor [Ombra Compressor System] 1 each MC PRN PRN #1 each PRN Reason: Shortness Of Breath Nicotine Patch [Nicoderm] 21 mg TD DAILY #30 patch.td24 predniSONE [PredniSONE] 10 mg PO TAPER #21 tablet <Theodore Duff A - Last Filed: 09/28/18 13:17> Date of Encounter: 09/28/18 - Attending Attestation I have personally performed a face to face evaluation on this patient. I have reviewed and agree with the documented findings and care plan as documented by the DRUG ROOM CLERK. History and Exam by me shows: 83-year-old gentleman with history of CAD status post CABG, presented with atypical chest pain and minimal troponin in the setting of upper respiratory tract infection. Echo shows preserved EF with moderate mitral stenosis. Stress test less than a year ago negative for ischemia. Recommend conservative management at this time. Avoid tachycardia in light of mitral stenosis. We will follow up as outpatient. Thanks, Theodore Duff MD [facility] Assessment and Plan Discussion w patient/family: The assessment and plan as outlined above was discussed with the patient and/or family members who expressed understanding and agreement. All questions were answered. Thank you for involving us in the care of your patient. Please call with any questions. History of Present Illness History of present illness: Mr. Wei is a 83 year old male All Systems Review: The remainder of the systems were reviewed and are negative Results 09/28/18 04:36 09/28/18 04:36 Lab Results 09/28/18 09/28/18 04:36 04:36 WBC 11.2 H Hgb 10.3 L Hct 32.6 L Plt Count 292 Sodium 137 Potassium 3.6 Chloride 104 Carbon Dioxide 24 BUN 38 H Creatinine 1.33 H Glucose 118 H Calcium 8.3 L
[2018-09-28] MEDS ORDERED: amLODIPine 5 MG TABLET PO ONE (10:00)
[2018-09-28] MEDS ORDERED: Isosorbide MONOnitrate (24 HR) 30 MG TAB.ER.24H PO SCH (10:45)
[2018-09-28] MEDS: Aspirin Enteric Coated 81 MG Tablet PO SCH (12:12)
[2018-09-28] MEDS: Nicotine 21 MG PATCH.TD24 TD SCH (12:17)
[2018-09-28] MEDS: cefTRIAXone 1,000 MG in Water for inj. (sterile) 20 ML 10 ML IVP SCH (12:19)
--- NOTE | 2018-09-28 12:35 | Discharge Summary ---
- NOTES TO OUTPATIENT PROVIDER Notes to Outpatient Provider: follow with cardiology as OP in 2-3 weeks. follow renal functions in 1 week and consider adjusting enalapril dosage if renal function declines Date of Encounter: 09/28/18 Time of Encounter: 12:32 - Discharge Diagnosis (1) COPD exacerbation Priority: Primary Status: Acute (2) NSTEMI (non-ST elevated myocardial infarction) Priority: Secondary Status: Acute (3) CAP (community acquired pneumonia) Priority: Secondary Status: Acute Qualifiers: Laterality: right Lung location: lower lobe of lung Qualified Code(s): J18.1 - Lobar pneumonia, unspecified organism (4) PAD (peripheral artery disease) Priority: Secondary Status: Chronic (5) Hypertension Priority: Secondary Status: Chronic Qualifiers: Hypertension type: essential hypertension Qualified Code(s): I10 - Essential (primary) hypertension (6) Hyperlipidemia Priority: Secondary Status: Chronic Qualifiers: Hyperlipidemia type: unspecified Qualified Code(s): E78.5 - Hyperlipidemia, unspecified (7) Mitral stenosis Priority: Secondary Status: Acute Qualifiers: Cardiac valve disease etiology: etiology unspecified Qualified Code(s): I05.0 - Rheumatic mitral stenosis (8) Tobacco abuse Priority: Secondary Status: Chronic (9) CAD (coronary artery disease) Priority: Secondary Status: Acute Qualifiers: Coronary Disease-Associated Artery/Lesion type: [place] artery [place] vs. transplanted heart: [place] heart Associated angina: angina presence unspecified Qualified Code(s): I25.10 - Atherosclerotic heart disease of [place] coronary artery without angina pectoris (10) DVT prophylaxis Priority: Secondary Status: Acute Hospital course: "Mr. Wei is a 83 year old male with PMH of CAD s/p CABG in , COPD, PAD, tobacco abuse, presented to an outside ED worsening dyspnea and chest tightness. He states that he has been having progressive worsening SOB over the last 2 weeks associated with cough and mild, whitish sputum production. He also had an episode of chest tightness when he woke up from sleep; substernal, non- radiating, no aggravating/relieving factors. States that he smokes "continuously at home". Pt has since been Troponins at outside facility documented as 0.1, 0.3. At [facility] troponins 0.48, 0.39." patient presented with above presentation and was admitted for further management of COPD exacerbation, PNA, and positive for RSV. he was started on IV steroids, nebulizer treatments and IV ABx with improvement of his respiratory status. Cardiology was consulted for elevated troponin and recommended OP follow up in 2-3 weeks as per cardiology, "TTE 09/25/18 EF preserved, moderate MS. Stress test 12/2017 negative for ischemia or infarct. Gated EF >70%. Given recent ischemic eval, preserved EF, no further inpt cardiac work-up is currently warranted." medication dosages were adjusted by the cardiology team. i discussed discharge plan with patient and son at bedside and they understand. Discharge discussed with: patient, family, nurse, regional sales consultant Time spent discussing smoking cessation with patient: more than 10 minutes - Time Spent with Patient Total time spent providing and/or coordinating discharge services: Greater than 30 minutes (45) - Discharge Medications Prescriptions: Ipratropium/Albuterol Neb [Duoneb] 3 ml IH Q6HR PRN #15 inhsol PRN Reason: Shortness Of Breath Azithromycin [Azithromycin 6-Tab Pack] 250 mg PO PER PKG DI #6 tab Budesonide/Formoterol 80/4.5 [Symbicort 80/4.5] 1 puff IH BID #1 hfa.aer.ad Cefdinir [Omnicef] 300 mg PO BID 5 Days #10 capsule Isosorbide MONOnitrate (24 HR) [Imdur] 30 mg PO DAILY #30 tab.er.24h Metoprolol [Lopressor] 75 mg PO BID 30 Days #60 tablet Nebulizer and Compressor [Ombra Compressor System] 1 each MC PRN PRN #1 each PRN Reason: Shortness Of Breath Nicotine Patch [Nicoderm] 21 mg TD DAILY #30 patch.td24 predniSONE [PredniSONE] 10 mg PO TAPER #21 tablet Home Medications: Aspirin [Lo-Dose Aspirin EC] 81 mg PO DAILY 01/04/18 [History] Enalapril Maleate [Vasotec] 20 mg PO DAILY 01/04/18 [History] Famotidine [Pepcid] 20 mg PO BID 01/04/18 [History] Gabapentin [Neurontin] 200 mg PO HS 01/04/18 [History] Rosuvastatin Calcium 20 mg PO HS 01/04/18 [History] Clopidogrel [Plavix] 75 mg PO DAILY #30 tablet 03/18/18 [Rx] Albuterol Sulfate [Ventolin Hfa] 2 puff IH Q6H PRN 09/24/18 [History] Azithromycin [Azithromycin 6-Tab Pack] 250 mg PO PER PKG DI #6 tab 09/28/18 [Rx] Budesonide/Formoterol 80/4.5 [Symbicort 80/4.5] 1 puff IH BID #1 hfa.aer.ad 09/28/18 [Rx] Cefdinir [Omnicef] 300 mg PO BID 5 Days #10 capsule 09/28/18 [Rx] Ipratropium/Albuterol Neb [Duoneb] 3 ml IH Q6HR PRN #15 inhsol 09/28/18 [Rx] Isosorbide MONOnitrate (24 HR) [Imdur] 30 mg PO DAILY #30 tab.er.24h 09/28/18 [Rx] Metoprolol [Lopressor] 75 mg PO BID 30 Days #60 tablet 09/28/18 [Rx] Nebulizer and Compressor [Ombra Compressor System] 1 each MC PRN PRN #1 each 09/28/18 [Rx] Nicotine Patch [Nicoderm] 21 mg TD DAILY #30 patch.td24 09/28/18 [Rx] predniSONE [PredniSONE] 10 mg PO TAPER #21 tablet 09/28/18 [Rx] Allergies/Adverse Reactions: Allergy/AdvReac Type Severity Reaction Status Date / Time No Known Allergies Allergy Verified 03/17/18 18:48 Date of admission: 09/24/18 15:53 Primary care physician: PCP NONE Consults: 09/26/18 09:15 Consult to Physical Therapy [CONS] Routine Comment: Evaluate, develop and implement POC Reason for Consult: discharge needs Does patient have active BEDREST order?: No Is patient medically & hemodynamically stable?: Yes Patient assessed for mobility or mobilized this visit?: Yes 09/28/18 08:06 Consult to Cardiology [CONS] Routine Comment: Consulting Provider: Cardiology Dara Reason for Consult: NSTEMI Call Completed: Yes - Constitutional Vitals: Temp Pulse Resp BP Pulse Ox 98.7 F 80 18 192/80 96 09/28/18 07:38 09/28/18 07:38 09/28/18 07:38 09/28/18 07:38 09/28/18 07:38 Exam: General: Alert and oriented, not in acute distress. Cardiovascular:Normal S1 & S2, No JVD. Regular rhythm, regular rhythm Lungs: bilateral end expiratory wheezes- improved Abdomen:Soft, non-tender, no rigidity. Extremities:No deformity or swelling Neurological:[place], No focal deficit - Patient Status Disposition: Home Health Service Condition: Fair Functional capacity at discharge: independent ambulation Overall status at discharge: patient is progressing back to baseline - Ambulatory Orders Ambulatory Orders: Basic Metabolic Panel [CHEM] Time Frame: 1 Week, Facility: [facility], Location: Lab - Discharge Instructions Follow Up With: May Frank, WAREHOUSE SHIPPING SUPERVISOR [Advanced Practice Nurse] - (called and left message with name and birthday ) NONE,PCP [Primary Care Provider] - - Diet and Activity Activity: as per physical therapy, increase activity as tolerated Diet: low salt diet (cardiac )
--- NOTE | 2018-09-28 13:23 | Physician Discharge Referral ---
Home Health/Hosp Referral Info Transfer to: Home Health Provider in Charge Post Discharge: PCP - Diagnosis (1) COPD exacerbation Status: Acute (2) NSTEMI (non-ST elevated myocardial infarction) Status: Acute (3) CAP (community acquired pneumonia) Status: Acute (4) PAD (peripheral artery disease) Status: Chronic (5) Hypertension Status: Chronic (6) Hyperlipidemia Status: Chronic (7) Mitral stenosis Status: Acute (8) Tobacco abuse Status: Chronic (9) CAD (coronary artery disease) Status: Acute (10) DVT prophylaxis Status: Acute - Respiratory Orders Smoking Cessation: Smoking cessation has been advised. For more information, call the [place] Tobacco Quit Line at 8-145-POXH-NOW. - Services Needed Following services are medically necessary services: Nursing, Home Health Aide, Physical Therapy - Transfer Medications Prescriptions: Ipratropium/Albuterol Neb [Duoneb] 3 ml IH Q6HR PRN #15 inhsol PRN Reason: Shortness Of Breath Azithromycin [Azithromycin 6-Tab Pack] 250 mg PO PER PKG DI #6 tab Budesonide/Formoterol 80/4.5 [Symbicort 80/4.5] 1 puff IH BID #1 hfa.aer.ad Cefdinir [Omnicef] 300 mg PO BID 5 Days #10 capsule Isosorbide MONOnitrate (24 HR) [Imdur] 30 mg PO DAILY #30 tab.er.24h Metoprolol [Lopressor] 75 mg PO BID 30 Days #60 tablet Nebulizer and Compressor [Ombra Compressor System] 1 each MC PRN PRN #1 each PRN Reason: Shortness Of Breath Nicotine Patch [Nicoderm] 21 mg TD DAILY #30 patch.td24 predniSONE [PredniSONE] 10 mg PO TAPER #21 tablet Home Medications: Aspirin [Lo-Dose Aspirin EC] 81 mg PO DAILY 01/04/18 [History] Enalapril Maleate [Vasotec] 20 mg PO DAILY 01/04/18 [History] Famotidine [Pepcid] 20 mg PO BID 01/04/18 [History] Gabapentin [Neurontin] 200 mg PO HS 01/04/18 [History] Rosuvastatin Calcium 20 mg PO HS 01/04/18 [History] Clopidogrel [Plavix] 75 mg PO DAILY #30 tablet 03/18/18 [Rx] Albuterol Sulfate [Ventolin Hfa] 2 puff IH Q6H PRN 09/24/18 [History] Azithromycin [Azithromycin 6-Tab Pack] 250 mg PO PER PKG DI #6 tab 09/28/18 [Rx] Budesonide/Formoterol 80/4.5 [Symbicort 80/4.5] 1 puff IH BID #1 hfa.aer.ad 09/28/18 [Rx] Cefdinir [Omnicef] 300 mg PO BID 5 Days #10 capsule 09/28/18 [Rx] Ipratropium/Albuterol Neb [Duoneb] 3 ml IH Q6HR PRN #15 inhsol 09/28/18 [Rx] Isosorbide MONOnitrate (24 HR) [Imdur] 30 mg PO DAILY #30 tab.er.24h 09/28/18 [Rx] Metoprolol [Lopressor] 75 mg PO BID 30 Days #60 tablet 09/28/18 [Rx] Nebulizer and Compressor [Ombra Compressor System] 1 each MC PRN PRN #1 each 09/28/18 [Rx] Nicotine Patch [Nicoderm] 21 mg TD DAILY #30 patch.td24 09/28/18 [Rx] predniSONE [PredniSONE] 10 mg PO TAPER #21 tablet 09/28/18 [Rx] Allergies/Adverse Reactions: Allergy/AdvReac Type Severity Reaction Status Date / Time No Known Allergies Allergy Verified 03/17/18 18:48 Certification: Further, I certify that my clinical findings support that this patient is homebound (i.e. absences from home require considerable and taxing effort and are for medical reasons or jain services or infrequently or short duration when for other reasons) because: Homebound Reason: Patient requires assistance of a person or device to safely leave home Attestation: My signature below is to certify that this patient is under my care and that I, or nurse practitioner, or a physician's it assistant working with me, has a [id number] encounter with this patient.
[2018-09-28] MEDS ORDERED: predniSONE 20 MG TABLET PO SCH (18:00)
== END 2018-09-28 14:15 | disposition home health service (06) | DRG 280 ==
LOC: 2ANU → SUATTDRO 12:48
PROVIDERS: ADMIT Internal Medicine; ATTEND Internal Medicine

== ENCOUNTER 2019-06-25 14:42 | Inpatient (IN) ==
[2019-06-25] MEDS ORDERED: Ipratropium/Albuterol Neb 3 ML IH STA (15:03)
[2019-06-25] MEDS ORDERED: methylPREDNISolone 125 MG/2 ML VIAL IVP ONE (15:04)
[2019-06-25 15:22] LABS: Basophils % 0.2 %; Eosinophils % 0.3 %; Hematocrit 36.9 % (37.5-50.1); Hemoglobin 11.4 g/dL (12.9-16.9); Immature Granulocytes % 0.2 % (0-4); Lymphocytes % 10.5 %; Mean Corpuscular HGB Conc 30.9 g/dL (31.6-35.5); Mean Corpuscular Hemoglobin 28.4 pg (28.0-33.3); Mean Platelet Volume 9.3 fL (9.4-12.4); Monocytes % 10.8 %; Neutrophils # 7.5 K/mcL (1.6-8.9); Platelet Count 243 K/mcL (140-400); Red Blood Count 4.01 M/mcL (4.19-5.50); Red Cell Distribution Width 16.3 % (11.5-14.5); White Blood Count 9.6 K/mcL (4.3-11.1)
[2019-06-25 15:48] LABS: Potassium 4.2 mEq/L (3.5-5.1); Troponin I 0.04 ng/mL (< 0.04)
[2019-06-25] MEDS ORDERED: cefTRIAXone 1,000 MG in Water for inj. (sterile) 10 ML IVP ONE (16:32)
[2019-06-25] MEDS ORDERED: Azithromycin 500 MG in 0.9 % Sodium Chloride 250 ML IVPB ONE (16:32)
[2019-06-25] MEDS ORDERED: 0.9 % Sodium Chloride 1,000 ML IVC STA (16:34)
[2019-06-25 16:36] LABS: Bilirubin,Urine Negative (Negative); Blood,Urine Trace (Negative); Clarity,Urine Clear (Clear); Color,Urine Yellow (Yellow); Glucose,Urine (UA) Normal (Normal); Ketones,Urine Negative (Negative); Leukocyte Esterase,Urine Negative (Negative); Nitrite,Urine Negative (Negative); Protein,Urine 100 mg/dL (Neg-Trace); Urobilinogen,Urine Normal (Normal)
[2019-06-25 16:40] LABS: Hyaline Casts,Urine None Seen per lpf (None-Few); Squamous Epithelial Cell,Urine Many per lpf (None-Few); WBC,Urine 0-3 per hpf (0-3)
[2019-06-25] MEDS ORDERED: Aspirin 325 MG TABLET PO ONE (16:48)
[2019-06-25 16:54] LABS: Bacteria,Urine Few per hpf (None-Few)
[2019-06-25] MEDS ORDERED: Ipratropium/Albuterol Neb 3 ML IH PRN (17:05)
[2019-06-25] MEDS ORDERED: traMADol 50 MG TABLET PO PRN (17:07)
[2019-06-25] MEDS ORDERED: *HR* Promethazine 25 MG/ML VIAL IVP PRN (17:07)
[2019-06-25] MEDS ORDERED: Naloxone 0.4 MG/ML INJ IVP PRN (17:07)
[2019-06-25] MEDS ORDERED: Ondansetron 4 MG/2 ML VIAL IVP PRN (17:07)
[2019-06-25] MEDS ORDERED: Mag Hydrox/Al Hydrox/Simeth 30 ML UDC PO PRN (17:07)
[2019-06-25] MEDS ORDERED: MOM Conc 10 ML UD.LIQ PO PRN (17:07)
[2019-06-25] MEDS: *HR* Heparin 5,000 UNIT/ML VIAL SQ SCH (18:42)
[2019-06-25] MEDS: Budesonide/Formoterol 160/4.5 1 PUFF INH IH SCH (20:29)
[2019-06-25] MEDS: Ipratropium/Albuterol Neb 3 ML IH SCH ×2 (20:29→23:16)
[2019-06-25] MEDS: Gabapentin 100 MG CAPSULE PO SCH (21:01)
[2019-06-25] MEDS: Metoprolol 100 MG TABLET PO SCH (21:01)
[2019-06-25] MEDS: Famotidine 20 MG TABLET PO SCH (21:01)
[2019-06-26] MEDS: methylPREDNISolone 125 MG/2 ML VIAL IVP SCH ×3 (02:08→20:17)
[2019-06-26] MEDS: Ipratropium/Albuterol Neb 3 ML IH SCH ×6 (03:17→23:42)
[2019-06-26] MEDS: *HR* Heparin 5,000 UNIT/ML VIAL SQ SCH ×2 (05:23→18:01)
[2019-06-26 06:14] LABS: Hematocrit 34.9 % (37.5-50.1); Hemoglobin 10.8 g/dL (12.9-16.9); Immature Granulocytes % 0.2 % (0-4); Lymphocytes # 0.7 K/mcL (0.6-4.6); Lymphocytes % 11.4 %; Mean Corpuscular HGB Conc 30.9 g/dL (31.6-35.5); Mean Corpuscular Hemoglobin 27.7 pg (28.0-33.3); Mean Corpuscular Volume 89.5 fL (83.0-100.0); Mean Platelet Volume 9.6 fL (9.4-12.4); Monocytes # 0.1 K/mcL (0.0-1.3); Monocytes % 1.9 %; Neutrophils # 5.5 K/mcL (1.6-8.9); Platelet Count 225 K/mcL (140-400); Segmented Neutrophils % 86.5 %; White Blood Count 6.3 K/mcL (4.3-11.1)
[2019-06-26] MEDS: Budesonide/Formoterol 160/4.5 1 PUFF INH IH SCH ×2 (07:17→20:31)
[2019-06-26 07:25] LABS: Calcium 8.8 mg/dL (8.6-10.3); Potassium 4.1 mEq/L (3.5-5.1)
[2019-06-26] MEDS: amLODIPine 5 MG TABLET PO SCH (08:22)
[2019-06-26] MEDS: Aspirin Enteric Coated 81 MG Tablet PO SCH (08:22)
[2019-06-26] MEDS: Metoprolol 100 MG TABLET PO SCH ×2 (08:22→20:16)
[2019-06-26] MEDS: Famotidine 20 MG TABLET PO SCH ×2 (08:23→20:17)
[2019-06-26 08:45] LABS: Adenovirus Not Detected (Not Detect); Bordetella Pertussis Not Detected (Not Detect); Chlamydophila pneumoniae Not Detected (Not Detect); Coronavirus 229E Not Detected (Not Detect); Coronavirus HKU1 Not Detected (Not Detect); Coronavirus NL63 Not Detected (Not Detect); Coronavirus OC43 Not Detected (Not Detect); Human Metapneumovirus Not Detected (Not Detect); Human Rhinovirus/Enterovirus Not Detected (Not Detect); Influenza A Subtype 2009 H1 Not Detected (Not Detect); Influenza A Untypeable Not Detected (Not Detect); Influenza B Not Detected (Not Detect); Mycoplasma pneumoniae Not Detected (Not Detect); Parainfluenza Virus 1 Not Detected (Not Detect); Parainfluenza Virus 2 Not Detected (Not Detect); Parainfluenza Virus 3 Not Detected (Not Detect); Parainfluenza Virus 4 Not Detected (Not Detect); Respiratory Syncytial Virus Not Detected (Not Detect)
[2019-06-26] MEDS ORDERED: Lisinopril 20 MG TABLET PO SCH (09:00)
[2019-06-26] MEDS: Azithromycin 250 MG TABLET PO SCH (10:10)
[2019-06-26] MEDS ORDERED: Albuterol 2.5 MG/3 ML NEBULIZER IH PRN (10:43)
[2019-06-26] MEDS: 0.9 % Sodium Chloride 1,000 ML IVC SCH (15:23)
[2019-06-26] MEDS ORDERED: Azithromycin 500 MG in 0.9 % Sodium Chloride 250 ML IVPB SCH (17:00)
[2019-06-26] MEDS: Gabapentin 100 MG CAPSULE PO SCH (20:16)
[2019-06-27] MEDS: Ipratropium/Albuterol Neb 3 ML IH SCH ×6 (03:47→23:27)
[2019-06-27] MEDS: *HR* Heparin 5,000 UNIT/ML VIAL SQ SCH ×2 (04:55→17:00)
[2019-06-27] MEDS: 0.9 % Sodium Chloride 1,000 ML IVC SCH ×2 (04:56→20:36)
[2019-06-27 05:00] LABS: Basophils % 0.1 %; Hematocrit 31.2 % (37.5-50.1); Hemoglobin 9.6 g/dL (12.9-16.9); Immature Granulocytes % 0.4 % (0-4); Lymphocytes # 0.9 K/mcL (0.6-4.6); Lymphocytes % 6.3 %; Mean Corpuscular HGB Conc 30.8 g/dL (31.6-35.5); Mean Corpuscular Hemoglobin 28.2 pg (28.0-33.3); Mean Corpuscular Volume 91.5 fL (83.0-100.0); Mean Platelet Volume 9.5 fL (9.4-12.4); Monocytes # 0.5 K/mcL (0.0-1.3); Monocytes % 3.6 %; Platelet Count 247 K/mcL (140-400); Red Blood Count 3.41 M/mcL (4.19-5.50); Segmented Neutrophils % 89.6 %
[2019-06-27 05:04] LABS: Neutrophils # 13.4 K/mcL (1.6-8.9); White Blood Count 14.9 K/mcL (4.3-11.1)
[2019-06-27 05:18] LABS: Calcium 8.4 mg/dL (8.6-10.3); Potassium 4.7 mEq/L (3.5-5.1)
[2019-06-27] MEDS: Budesonide/Formoterol 160/4.5 1 PUFF INH IH SCH ×2 (07:07→19:47)
[2019-06-27] MEDS: Azithromycin 250 MG TABLET PO SCH (10:03)
[2019-06-27] MEDS: Metoprolol 100 MG TABLET PO SCH ×2 (10:03→20:37)
[2019-06-27] MEDS: amLODIPine 5 MG TABLET PO SCH (10:03)
[2019-06-27] MEDS: Aspirin Enteric Coated 81 MG Tablet PO SCH (10:03)
[2019-06-27] MEDS: methylPREDNISolone 125 MG/2 ML VIAL IVP SCH ×2 (10:04→20:36)
[2019-06-27 15:03] LABS: Sodium, Urine 29.7 mEq/L
[2019-06-27] MEDS: Acetaminophen 325 MG TABLET PO PRN (18:37)
[2019-06-27] MEDS: Gabapentin 100 MG CAPSULE PO SCH (20:35)
[2019-06-27] MEDS: Famotidine 20 MG TABLET PO SCH (20:35)
[2019-06-28] MEDS: Ipratropium/Albuterol Neb 3 ML IH SCH ×6 (03:38→23:25)
[2019-06-28] MEDS: *HR* Heparin 5,000 UNIT/ML VIAL SQ SCH ×2 (05:31→16:57)
[2019-06-28] MEDS: Budesonide/Formoterol 160/4.5 1 PUFF INH IH SCH ×2 (07:34→19:43)
[2019-06-28 08:10] LABS: Basophils % 0.1 %; Hematocrit 30.1 % (37.5-50.1); Hemoglobin 9.3 g/dL (12.9-16.9); Immature Granulocytes % 0.9 % (0-4); Lymphocytes # 0.5 K/mcL (0.6-4.6); Lymphocytes % 3.5 %; Mean Corpuscular HGB Conc 30.9 g/dL (31.6-35.5); Mean Corpuscular Hemoglobin 28.2 pg (28.0-33.3); Mean Corpuscular Volume 91.2 fL (83.0-100.0); Mean Platelet Volume 9.4 fL (9.4-12.4); Monocytes # 0.6 K/mcL (0.0-1.3); Monocytes % 3.9 %; Platelet Count 239 K/mcL (140-400); Segmented Neutrophils % 91.6 %; White Blood Count 15.3 K/mcL (4.3-11.1)
[2019-06-28 08:22] LABS: Calcium 8.1 mg/dL (8.6-10.3); Potassium 4.7 mEq/L (3.5-5.1)
[2019-06-28] MEDS: methylPREDNISolone 125 MG/2 ML VIAL IVP SCH (09:54)
[2019-06-28] MEDS: amLODIPine 5 MG TABLET PO SCH (09:54)
[2019-06-28] MEDS: Azithromycin 250 MG TABLET PO SCH (09:54)
[2019-06-28] MEDS: Aspirin Enteric Coated 81 MG Tablet PO SCH (09:54)
[2019-06-28] MEDS: Metoprolol 100 MG TABLET PO SCH ×2 (09:54→23:54)
[2019-06-28] MEDS: 0.9 % Sodium Chloride 1,000 ML IVC SCH ×2 (09:56→20:04)
[2019-06-28] MEDS: Acetaminophen 325 MG TABLET PO PRN (12:48)
[2019-06-28] MEDS: predniSONE 20 MG TABLET PO SCH (16:56)
[2019-06-28] MEDS ORDERED: Fluticasone Propionate Nasal 50 MCG/SPRAY BOTTLE NS PRN (17:06)
[2019-06-28] MEDS: Famotidine 20 MG TABLET PO SCH (20:04)
[2019-06-28] MEDS: Gabapentin 100 MG CAPSULE PO SCH (20:04)
[2019-06-29] MEDS: Ipratropium/Albuterol Neb 3 ML IH SCH ×6 (04:27→23:33)
[2019-06-29 04:59] LABS: Basophils % 0.1 %; Hematocrit 29.8 % (37.5-50.1); Immature Granulocytes % 1.2 % (0-4); Lymphocytes # 0.7 K/mcL (0.6-4.6); Lymphocytes % 4.9 %; Mean Corpuscular HGB Conc 30.2 g/dL (31.6-35.5); Mean Corpuscular Volume 92.8 fL (83.0-100.0); Mean Platelet Volume 9.8 fL (9.4-12.4); Monocytes # 0.7 K/mcL (0.0-1.3); Monocytes % 4.5 %; Neutrophils # 13.1 K/mcL (1.6-8.9); Platelet Count 228 K/mcL (140-400); Red Blood Count 3.21 M/mcL (4.19-5.50); Red Cell Distribution Width 16.1 % (11.5-14.5); Segmented Neutrophils % 89.3 %; White Blood Count 14.7 K/mcL (4.3-11.1)
[2019-06-29 05:08] LABS: Calcium 8.1 mg/dL (8.6-10.3); Potassium 5.3 mEq/L (3.5-5.1)
[2019-06-29] MEDS: *HR* Heparin 5,000 UNIT/ML VIAL SQ SCH ×2 (05:36→17:02)
[2019-06-29] MEDS: 0.9 % Sodium Chloride 1,000 ML IVC SCH ×3 (05:37→20:33)
[2019-06-29] MEDS: Budesonide/Formoterol 160/4.5 1 PUFF INH IH SCH ×2 (07:38→20:31)
[2019-06-29] MEDS: predniSONE 20 MG TABLET PO SCH (09:12)
[2019-06-29] MEDS: Azithromycin 250 MG TABLET PO SCH (09:13)
[2019-06-29] MEDS: Metoprolol 100 MG TABLET PO SCH ×2 (09:13→22:01)
[2019-06-29] MEDS: Aspirin Enteric Coated 81 MG Tablet PO SCH (09:13)
[2019-06-29] MEDS: amLODIPine 5 MG TABLET PO SCH (09:13)
[2019-06-29] MEDS: Famotidine 20 MG TABLET PO SCH (22:02)
[2019-06-29] MEDS: Gabapentin 100 MG CAPSULE PO SCH (22:02)
[2019-06-30] MEDS: 0.9 % Sodium Chloride 1,000 ML IVC SCH (02:43)
[2019-06-30] MEDS: Ipratropium/Albuterol Neb 3 ML IH SCH ×3 (04:14→11:27)
[2019-06-30] MEDS: *HR* Heparin 5,000 UNIT/ML VIAL SQ SCH (05:36)
[2019-06-30 05:42] LABS: Basophils % 0.1 %; Hematocrit 28.9 % (37.5-50.1); Hemoglobin 8.8 g/dL (12.9-16.9); Immature Granulocytes % 1.5 % (0-4); Lymphocytes # 1.2 K/mcL (0.6-4.6); Mean Corpuscular HGB Conc 30.4 g/dL (31.6-35.5); Mean Corpuscular Hemoglobin 28.2 pg (28.0-33.3); Mean Corpuscular Volume 92.6 fL (83.0-100.0); Mean Platelet Volume 9.5 fL (9.4-12.4); Monocytes # 0.8 K/mcL (0.0-1.3); Monocytes % 6.1 %; Platelet Count 203 K/mcL (140-400); Red Blood Count 3.12 M/mcL (4.19-5.50); Red Cell Distribution Width 16.3 % (11.5-14.5); Segmented Neutrophils % 83.3 %; White Blood Count 13.3 K/mcL (4.3-11.1)
[2019-06-30 06:01] LABS: Calcium 7.6 mg/dL (8.6-10.3)
[2019-06-30] MEDS: Budesonide/Formoterol 160/4.5 1 PUFF INH IH SCH (07:17)
[2019-06-30 08:38] VITALS: BP 138/69
[2019-06-30] MEDS: amLODIPine 5 MG TABLET PO SCH (11:02)
[2019-06-30] MEDS: predniSONE 20 MG TABLET PO SCH (11:02)
[2019-06-30] MEDS: Metoprolol 100 MG TABLET PO SCH (11:03)
[2019-06-30] MEDS: Aspirin Enteric Coated 81 MG Tablet PO SCH (11:03)
[2019-06-30] MEDS ORDERED: FLU Vac QV 19-20 (6Month+)/PF 0.5 ML SYRINGE IM ONE (11:23)
== END 2019-06-30 13:35 | disposition home health service (06) | DRG 190 ==
LOC: 2ANU 14:42 → EMEROOARM 14:42 → 2ANU 18:00 → SUATTDRO 06-26 11:18
PROVIDERS: ADMIT Internal Medicine; ATTEND Family Medicine

== ENCOUNTER 2019-09-19 10:48 | Inpatient (IN) ==
[2019-09-19 12:34] LABS: Basophils % 0.3 %; Eosinophils # 0.2 K/mcL (0.0-0.6); Eosinophils % 2.1 %; Hematocrit 25.6 % (37.5-50.1); Hemoglobin 7.9 g/dL (12.9-16.9); Immature Granulocytes % 0.3 % (0-4); Lymphocytes # 2.6 K/mcL (0.6-4.6); Lymphocytes % 24.2 %; Mean Corpuscular HGB Conc 30.9 g/dL (31.6-35.5); Mean Corpuscular Hemoglobin 29.7 pg (28.0-33.3); Mean Corpuscular Volume 96.2 fL (83.0-100.0); Mean Platelet Volume 9.3 fL (9.4-12.4); Monocytes # 1.1 K/mcL (0.0-1.3); Monocytes % 10.4 %; Neutrophils # 6.7 K/mcL (1.6-8.9); Platelet Count 245 K/mcL (140-400); Red Blood Count 2.66 M/mcL (4.19-5.50); Red Cell Distribution Width 14.6 % (11.5-14.5); Segmented Neutrophils % 62.7 %; White Blood Count 10.7 K/mcL (4.3-11.1)
[2019-09-19 13:01] LABS: Bilirubin,Urine Negative (Negative); Blood,Urine Small (Negative); Clarity,Urine Clear (Clear); Color,Urine Yellow (Yellow); Glucose,Urine (UA) Normal (Normal); Ketones,Urine Negative (Negative); Leukocyte Esterase,Urine Small (Negative); Nitrite,Urine Negative (Negative); Protein,Urine 30 mg/dL (Neg-Trace); Specific Gravity,Urine 1.016 (1.010-1.025); Urobilinogen,Urine Normal (Normal)
[2019-09-19 13:02] LABS: Calcium 8.5 mg/dL (8.6-10.3); Potassium 5.3 mEq/L (3.5-5.1)
[2019-09-19 13:03] LABS: Bacteria,Urine None Seen per hpf (None-Few); Hyaline Casts,Urine None Seen per lpf (None-Few); Squamous Epithelial Cell,Urine Moderate per lpf (None-Few)
[2019-09-19] MEDS ORDERED: 0.9 % Sodium Chloride 1,000 ML IV ONE (13:15)
[2019-09-19] MEDS ORDERED: Ondansetron 4 MG/2 ML VIAL IVP PRN (14:12)
[2019-09-19] MEDS ORDERED: Naloxone 0.4 MG/ML INJ IVP PRN (14:12)
[2019-09-19] MEDS ORDERED: 0.9 % Sodium Chloride 1,000 ML IVC SCH (14:15)
[2019-09-19 16:27] LABS: Sodium, Urine 64.7 mEq/L
[2019-09-19] MEDS: Gabapentin 100 MG CAPSULE PO SCH (19:49)
[2019-09-19] MEDS: Budesonide/Formoterol 160/4.5 1 PUFF INH IH SCH (20:06)
[2019-09-20 04:57] LABS: Basophils % 0.1 %; Eosinophils # 0.2 K/mcL (0.0-0.6); Eosinophils % 2.8 %; Hematocrit 20.6 % (37.5-50.1); Hemoglobin 6.4 g/dL (12.9-16.9); Immature Granulocytes % 0.2 % (0-4); Lymphocytes # 2.6 K/mcL (0.6-4.6); Lymphocytes % 31.6 %; Mean Corpuscular HGB Conc 31.1 g/dL (31.6-35.5); Mean Corpuscular Hemoglobin 28.8 pg (28.0-33.3); Mean Corpuscular Volume 92.8 fL (83.0-100.0); Mean Platelet Volume 9.2 fL (9.4-12.4); Monocytes # 0.9 K/mcL (0.0-1.3); Monocytes % 10.5 %; Neutrophils # 4.5 K/mcL (1.6-8.9); Platelet Count 182 K/mcL (140-400); Red Blood Count 2.22 M/mcL (4.19-5.50); Red Cell Distribution Width 14.6 % (11.5-14.5); Segmented Neutrophils % 54.8 %; White Blood Count 8.2 K/mcL (4.3-11.1)
[2019-09-20 05:18] LABS: Calcium 7.3 mg/dL (8.6-10.3); Potassium 3.9 mEq/L (3.5-5.1)
[2019-09-20] MEDS: Budesonide/Formoterol 160/4.5 1 PUFF INH IH SCH ×2 (07:38→20:27)
[2019-09-20] MEDS: Aspirin Enteric Coated 81 MG Tablet PO SCH (10:08)
[2019-09-20 10:18] LABS: Hematocrit 20.8 % (37.5-50.1); Hemoglobin 6.6 g/dL (12.9-16.9)
[2019-09-20] MEDS ORDERED: 0.9 % Sodium Chloride 1,000 ML IVC SCH (11:30)
[2019-09-20 11:50] LABS: Hepatitis B Surface Antigen Nonreactive (Nonreactive)
[2019-09-20 12:18] LABS: Hepatitis A Antibody IgM Nonreactive (Nonreactive); Hepatitis B Core IgM Nonreactive (Nonreactive); Hepatitis C Virus Antibody Nonreactive (Nonreactive)
[2019-09-20] MEDS ORDERED: 0.9 % Sodium Chloride 250 ML ONE (13:47)
[2019-09-20] MEDS: Sodium Bicarbonate 75 MEQ in 0.45 % Sodium Chloride 1,000 ML IVC SCH (14:57)
[2019-09-20] MEDS: Gabapentin 100 MG CAPSULE PO SCH (19:53)
[2019-09-21] MEDS: Sodium Bicarbonate 75 MEQ in 0.45 % Sodium Chloride 1,000 ML IVC SCH ×3 (01:10→21:25)
[2019-09-21 04:25] LABS: Hematocrit 22.7 % (37.5-50.1); Hemoglobin 7.4 g/dL (12.9-16.9); Mean Corpuscular HGB Conc 32.6 g/dL (31.6-35.5); Mean Corpuscular Hemoglobin 29.8 pg (28.0-33.3); Mean Corpuscular Volume 91.5 fL (83.0-100.0); Mean Platelet Volume 9.5 fL (9.4-12.4); Platelet Count 148 K/mcL (140-400); Red Blood Count 2.48 M/mcL (4.19-5.50); Red Cell Distribution Width 15.2 % (11.5-14.5); White Blood Count 7.7 K/mcL (4.3-11.1)
[2019-09-21 04:44] LABS: Calcium 7.2 mg/dL (8.6-10.3); Magnesium 2.3 mg/dL (1.6-2.6); Potassium 3.6 mEq/L (3.5-5.1)
[2019-09-21 04:46] LABS: Albumin 2.6 g/dL (3.5-5.7); Calcium 6.9 mg/dL (8.6-10.3); Phosphorous 6.5 mg/dL (2.7-4.5); Potassium 3.5 mEq/L (3.5-5.1)
[2019-09-21] MEDS: Budesonide/Formoterol 160/4.5 1 PUFF INH IH SCH ×2 (07:34→20:09)
[2019-09-21] MEDS: Aspirin Enteric Coated 81 MG Tablet PO SCH (07:58)
[2019-09-21] MEDS: Gabapentin 100 MG CAPSULE PO SCH (19:54)
[2019-09-21 20:09] LABS: Bilirubin,Urine Negative (Negative); Blood,Urine Large (Negative); Glucose,Urine (UA) Normal (Normal); Ketones,Urine Negative (Negative); Leukocyte Esterase,Urine Small (Negative); Nitrite,Urine Negative (Negative); PH,Urine 6.5 pH Units (5.0-8.0); Protein,Urine 100 mg/dL (Neg-Trace); Protein/Creatinine Ratio,Urine 2.04 mg/mg (0.00-0.20); Specific Gravity,Urine 1.014 (1.010-1.025); Urobilinogen,Urine Normal (Normal)
[2019-09-21 20:11] LABS: Clarity,Urine Cloudy (Clear); Color,Urine Pink (Yellow)
[2019-09-22] MEDS: Sodium Bicarbonate 75 MEQ in 0.45 % Sodium Chloride 1,000 ML IVC SCH (04:41)
[2019-09-22 04:45] LABS: Hematocrit 23.4 % (37.5-50.1); Hemoglobin 7.5 g/dL (12.9-16.9); INR 1.3; Mean Corpuscular HGB Conc 32.1 g/dL (31.6-35.5); Mean Corpuscular Hemoglobin 29.4 pg (28.0-33.3); Mean Corpuscular Volume 91.8 fL (83.0-100.0); Mean Platelet Volume 9.7 fL (9.4-12.4); Platelet Count 150 K/mcL (140-400); Prothrombin Time 14.7 Seconds (9.4-12.1); Red Blood Count 2.55 M/mcL (4.19-5.50); White Blood Count 9.8 K/mcL (4.3-11.1)
[2019-09-22 04:55] LABS: Complement C3 113 mg/dL (87-200)
[2019-09-22 04:57] LABS: Albumin 2.8 g/dL (3.5-5.7); Phosphorous 5.9 mg/dL (2.7-4.5); Potassium 3.4 mEq/L (3.5-5.1); Rheumatoid Factor < 10 IU/mL (Less than 14)
[2019-09-22 05:21] LABS: Folate 8.2 ng/mL (3.0-16.0); Vitamin B12 279 pg/mL (250-1100)
[2019-09-22] MEDS: Ipratropium/Albuterol Neb 3 ML IH PRN ×2 (06:35→15:45)
[2019-09-22] MEDS ORDERED: 0.9 % Sodium Chloride 250 ML IVC PRN (09:19)
[2019-09-22] MEDS ORDERED: 0.9 % Sodium Chloride 1,000 ML PRIME SCH (09:30)
[2019-09-22] MEDS: Budesonide/Formoterol 160/4.5 1 PUFF INH IH SCH ×2 (11:00→19:56)
[2019-09-22] MEDS ORDERED: *HR* Heparin 5,000 UNIT/ML VIAL IR ONE (12:04)
[2019-09-22] MEDS: Aspirin Enteric Coated 81 MG Tablet PO SCH (16:02)
[2019-09-22] MEDS ORDERED: *HR* Heparin 10,000 UNIT/10 ML VIAL IV PRN (16:27)
[2019-09-22] MEDS: Gabapentin 100 MG CAPSULE PO SCH (20:02)
[2019-09-23 03:40] LABS: Hematocrit 23.8 % (37.5-50.1); Hemoglobin 7.5 g/dL (12.9-16.9); Mean Corpuscular HGB Conc 31.5 g/dL (31.6-35.5); Mean Corpuscular Hemoglobin 28.8 pg (28.0-33.3); Mean Corpuscular Volume 91.5 fL (83.0-100.0); Mean Platelet Volume 9.4 fL (9.4-12.4); Platelet Count 139 K/mcL (140-400); Red Cell Distribution Width 14.6 % (11.5-14.5); White Blood Count 9.5 K/mcL (4.3-11.1)
[2019-09-23 03:59] LABS: Calcium 7.2 mg/dL (8.6-10.3); Potassium 3.8 mEq/L (3.5-5.1)
[2019-09-23] MEDS ORDERED: 0.9 % Sodium Chloride 250 ML IVC PRN (07:13)
[2019-09-23] MEDS: Budesonide/Formoterol 160/4.5 1 PUFF INH IH SCH ×2 (07:52→19:55)
[2019-09-23] MEDS: Aspirin Enteric Coated 81 MG Tablet PO SCH (08:22)
[2019-09-23 09:54] LABS: Serine Protease-3 Antibody 0 AU/mL (0-19)
[2019-09-23] MEDS: Gabapentin 100 MG CAPSULE PO SCH (20:24)
[2019-09-24 05:22] LABS: Calcium 7.7 mg/dL (8.6-10.3); Magnesium 1.9 mg/dL (1.6-2.6); Potassium 3.6 mEq/L (3.5-5.1)
[2019-09-24] MEDS: Budesonide/Formoterol 160/4.5 1 PUFF INH IH SCH ×2 (07:43→20:19)
[2019-09-24] MEDS: Aspirin Enteric Coated 81 MG Tablet PO SCH (08:03)
[2019-09-24 08:41] LABS: ANA IgG by ELISA NONE DETECTED (None Detected)
[2019-09-24 10:19] LABS: GBM IgG Multiplex Bead Assay 1 AU/mL (0-19); Glomerular Basement Memb IgG NEGATIVE (Negative)
[2019-09-24] MEDS: Gabapentin 100 MG CAPSULE PO SCH (20:04)
[2019-09-25 03:55] LABS: Hematocrit 26.3 % (37.5-50.1); Hemoglobin 7.9 g/dL (12.9-16.9); Mean Corpuscular Volume 96.7 fL (83.0-100.0); Mean Platelet Volume 9.7 fL (9.4-12.4); Platelet Count 155 K/mcL (140-400); Red Blood Count 2.72 M/mcL (4.19-5.50); Red Cell Distribution Width 14.3 % (11.5-14.5); White Blood Count 8.4 K/mcL (4.3-11.1)
[2019-09-25 04:04] LABS: Calcium 7.5 mg/dL (8.6-10.3); Magnesium 1.9 mg/dL (1.6-2.6); Potassium 3.5 mEq/L (3.5-5.1)
[2019-09-25] MEDS: Budesonide/Formoterol 160/4.5 1 PUFF INH IH SCH ×2 (07:52→22:44)
[2019-09-25] MEDS ORDERED: 0.9 % Sodium Chloride 250 ML IVC PRN (08:12)
[2019-09-25] MEDS: Aspirin Enteric Coated 81 MG Tablet PO SCH (08:15)
[2019-09-25] MEDS: Ipratropium/Albuterol Neb 3 ML IH PRN ×2 (09:30→15:26)
[2019-09-25 10:03] LABS: Beta Globulin (PEP) 0.56 g/dL (0.48-1.10)
[2019-09-25 10:11] LABS: Immunoglobulin G 607 mg/dL (768-1632); Immunoglobulin M 28 mg/dL (35-263)
[2019-09-25 10:12] LABS: IFE Reflexed IFE Done; Immunoglobulin A 259 mg/dL (68-408)
[2019-09-25] MEDS: Acetaminophen 325 MG TABLET PO PRN (18:42)
[2019-09-25] MEDS: Gabapentin 100 MG CAPSULE PO SCH (20:13)
[2019-09-26 04:31] LABS: Calcium 7.6 mg/dL (8.6-10.3); Potassium 3.4 mEq/L (3.5-5.1)
[2019-09-26] MEDS ORDERED: *HR* LORazepam 2 MG/ML VIAL IVP ONE (05:46)
[2019-09-26] MEDS: Ipratropium/Albuterol Neb 3 ML IH PRN (05:50)
[2019-09-26] MEDS: Levalbuterol Neb 1.25 MG/3 ML IH SCH ×3 (10:28→22:03)
[2019-09-26] MEDS: Budesonide/Formoterol 160/4.5 1 PUFF INH IH SCH ×2 (10:28→20:14)
[2019-09-26] MEDS ORDERED: Heparin 1,000 UNITS/500 mL 500 ML ONE (14:23)
[2019-09-26] MEDS ORDERED: *HR* FentaNYL (PF) 100 MCG/2 ML VIAL IVP ONE (14:27)
[2019-09-26] MEDS ORDERED: *HR* Midazolam HCl 2 MG/2 ML VIAL IVP ONE (14:27)
[2019-09-26] MEDS ORDERED: CeFAZolin Premix DUPLEX 2,000 MG/50 ML BAG IVPB ONE (14:27)
[2019-09-26] MEDS ORDERED: 0.9 % Sodium Chloride 500 ML ONE (14:38)
[2019-09-26] MEDS ORDERED: *HR* Heparin 5,000 UNIT/ML VIAL ONE (14:56)
[2019-09-26] MEDS: Aspirin Enteric Coated 81 MG Tablet PO SCH (16:34)
[2019-09-26] MEDS: Acetaminophen 325 MG TABLET PO PRN (16:46)
[2019-09-26] MEDS: Gabapentin 100 MG CAPSULE PO SCH (21:27)
[2019-09-27] MEDS: Levalbuterol Neb 1.25 MG/3 ML IH SCH ×4 (03:52→21:34)
[2019-09-27] MEDS: Aspirin Enteric Coated 81 MG Tablet PO SCH (09:22)
[2019-09-27] MEDS ORDERED: Preparation H Ointment 30 GM TUBE TP PRN (09:57)
[2019-09-27] MEDS: Budesonide/Formoterol 160/4.5 1 PUFF INH IH SCH ×2 (10:28→21:34)
[2019-09-27 11:41] LABS: Calcium 8.1 mg/dL (8.6-10.3); Potassium 3.8 mEq/L (3.5-5.1)
[2019-09-27] MEDS ORDERED: 0.9 % Sodium Chloride 250 ML IVC PRN (15:15)
[2019-09-27] MEDS ORDERED: *HR* Heparin 10,000 UNIT/10 ML VIAL IV PRN (18:25)
[2019-09-27] MEDS: Gabapentin 100 MG CAPSULE PO SCH (20:11)
[2019-09-28] MEDS: Levalbuterol Neb 1.25 MG/3 ML IH SCH ×2 (03:10→09:34)
[2019-09-28 06:37] VITALS: BP 119/69
[2019-09-28] MEDS: Aspirin Enteric Coated 81 MG Tablet PO SCH (08:52)
[2019-09-28] MEDS: Budesonide/Formoterol 160/4.5 1 PUFF INH IH SCH (09:34)
== END 2019-09-28 10:19 | DRG 673 ==
LOC: 2ANU 10:48 → EMEROOARM 10:48 → 2ANU 14:35 → SUATTDRO 16:30
PROVIDERS: ADMIT Internal Medicine; ATTEND Internal Medicine
PROC: IRPERMA (2019-09-26 12:00)